=== PATIENT | male | born 1960 | race Caucasian/White ===

== ENCOUNTER → 2019-12-06 | Day surgery (SDC) | payer MEDICARE ==
[~2019-12-06] MED LIST: AMLODIPINE BESY10 MG PO; ATORVASTATIN CA20 MG PO; BUPIVACAINE HCL 0.5% INJ 30 ML VIAL INJ ONE; CEFAZOLIN SOD 1 GM/NS 50ML 50 ML IV ONE; DEXAMETHASONE SOD PHOS INJ 4 MG/ML VIAL ONE; FISH OIL 1,0001 EAC2 PO; GLIPIZIDE5 MG PO; HYDRALAZINE HCL25 MG PO; ISONIAZID300 MG PO; LIDOCAINE HCL 2% LOCAL INJ 5 ML SDV VIAL INJ ONE; ONDANSETRON HCL INJ 2MG/ML 2ML 2 MG/ML VIAL ONE; PROPOFOL IV EMULSION 10 MG/ML 20 ML VIAL ONE; SEVOFLURANE INHAL SOLN 250 ML PEN BTL ONE; SODIUM CHLORIDE 0.9% 500ML 500 ML ONE; VITAMIN B6 PO
--- OUTSIDE RECORDS SUMMARY | 2019-12-06 06:21 | XMS REPORT | Continuity of Care Document ---
Author Author [facility] Address Unknown Phone Unavailable Care Team Providers Care Airport Operations Coordinator Name Role Phone Unavailable Unavailable Insurance Providers Payer Name Policy Number Subscriber Name Relationship [facility] [id number] MARCUS ARMENTA SELF/SAME PATIENT Advance Directives Directive Response Recorded Date/Time Code Status FULL CODE 03/05/19 2:05pm Advance Directive? N 03/05/19 12:05pm Living Will? N 03/05/19 12:05pm Health Care Proxy? N 03/05/19 12:05pm Healthcare Power of Pitch Filler? N 03/05/19 12:05pm Is the patient an Organ Donor? N 03/05/19 11:25am Chief Complaint and Reason for Visit Reason for Visit RENAL FAILURE Problems Active Medical Problems Problem Onset Date Recorded Date Status Renal failure Unknown 03/05/19 Active Medications Current Home Medications Medication Dose Units Route Directions Days/Qty Instructions Start Date AMLODIPINE BESYLATE (AMLODIPINE BESYLATE 10 MG TAB) 10 MG TAB 10 MG By Mouth EVERY DAY @ 0900 Ascorbic Acid (ASCORBIC ACID 500 MG TAB) 500 MG TAB 500 MG By Mouth EVERY DAY @ 0900 Atorvastatin Calcium (LIPITOR 20 MG TAB) 20 MG TAB 20 MG By Mouth AT BEDTIME (2100) B-Complex Vitamins (VITAMIN B COMPLEX TAB) 1 TAB TAB 1 TAB By Mouth EVERY DAY @ 0900 Clonidine Hydrochloride (CLONIDINE 0.1 MG TAB) 0.1 MG TAB 0.1 MG By Mouth TWICE A DAY (0900; 2100) Glipizide (Glipizide ER 2.5 MG TAB) 2.5 MG TAB 2.5 MG By Mouth EVERY DAY @ 0900 Hydralazine Hcl (HYDRALAZINE 100 MG TAB) 100 MG TAB 100 MG By Mouth TWICE A DAY (0900; 2100) 60 03/09/19 Multiple Vitamin (Multi Vitamin) TAB 1 By Mouth EVERY DAY @ 0900 [place]-3 Fatty Acids (FISH OIL 1000 MG CAP) 1,000 MG CAP 1,000 MG By Mouth EVERY DAY @ 0900 Social History Problem Response Recorded Date Druze/Cultural Preferences: NONE 03/05/19 Recreational drugs? N 03/05/19 Alcohol? Y 03/05/19 Query Response Start Date Stop Date Smoking Status: Former Smoker Hospital Discharge Instructions Diagnosis: ESRD Goal: MET Intervention: DIALYSIS Anticipated Discharge Date 03/09/19 Anticipated Discharge Time 1600 Plan of Care Discharge Date 03/09/19 Disposition HOME/SELF CARE Instructions/Education Provided Kidney Failure DI for Kidney Failure Forms Provided [facility] Phone Sd Patient Portal [employer] Instruct DI How to Quit Smoking Prescriptions See Medications Section Additional Instructions/Education F/U W/ PCP IN 1WK Care Plan and Goals See Discharge Instructions section Functional Status Query Response Date Recorded WNL?+ Y March 09, 2019 9:00am Allergies, Adverse Reactions, Alerts No known allergies. Immunizations No Known History of Immunizations. Vital Signs Vital Reading Collection Date/Time Result Blood Pressure 03/09/19 3:08pm 157/82 Blood Pressure Source 03/09/19 4:00am Auto Cuff Temperature 03/09/19 3:08pm 97.2 F Temperature Source 03/09/19 4:00am Oral Respiratory Rate 03/09/19 3:08pm 18 Pulse Rate 03/09/19 3:08pm 74 Pulse Location 03/09/19 4:00am Monitor Bedside Pulse Oximetry 03/09/19 3:08pm 97 Height 03/09/19 6:00am 5 ft 11 in Height 03/09/19 6:00am 180.34 cm Weight 03/09/19 6:00am 210 lb Weight 03/09/19 6:00am 95.424 kg Body Mass Index 03/09/19 6:00am 29.3 kg/m2 Results Laboratory Results Test Name Result Units Flags Reference Collection Date/Time Result Date/Time Comments Glucose (Fingerstick) 142 mg/dL H 65-99 03/09/19 11:56am 03/09/19 2:25pm Sodium Level 137 mmol/L 135-144 03/09/19 5:11a03/09/19 5:46am Potassium Level 3.9 mmol/L 3.5-5.1 03/09/19 5:11a03/09/19 5:46am Chloride Level 101 mmol/L 101-111 03/09/19 5:11a03/09/19 5:46am Carbon Dioxide Level 25 mmol/L 22-32 03/09/19 5:11a03/09/19 5:46am Anion Gap 14.9 mmol/L 10-03/09/19 5:11a03/09/19 5:46am Glucose Level 127 mg/dL H 65-99 03/09/19 5:11a03/09/19 5:46am Prediabetes 100 to 125 mg/dl Diabetes 126 mg/dl or higher Prediabetes refers to individuals with plasma glucose levels intermediate between those considered normal and those considered diabetic and is also referred to as impaired glucose tolerance (IGT) or impaired fasting glucose (IFG). Blood Urea Nitrogen 22 mg/dL 8-03/09/19 5:11a03/09/19 5:46am Creatinine 4.4 mg/dL H 0.61-1.24 03/09/19 5:11a03/09/19 5:46am EGFR Note 13.3 L 59.3-175.8 03/09/19 5:11a03/09/19 5:46am eGFR (Estimated Glomerular Filtration Rate) eGFR calculation value obtained using the [facility] Quadratic (MCQ) equation. The reportable reference range is recommended to be greater than 60 ml/min/1.73m. This is an estimation of the patient's GFR and clinical correlation is recommended. This eGFR calculation does not account for race. This result may differ from other equations available. Calcium Level 8.4 mg/dL L 8.9-10.3 03/09/19 5:11am 03/09/19 5:46am Urine Color STRAW YELLOW 03/07/19 7:45am 03/07/19 8:31am Urine Appearance CLEAR CLEAR 03/07/19 7:45am 03/07/19 8:31am Urine Glucose 100 mg/dL A NEGATIVE 03/07/19 7:45am 03/07/19 8:31am Urine Bilirubin NEGATIVE NEGATIVE 03/07/19 7:45am 03/07/19 8:31am Urine Ketones NEGATIVE NEGATIVE 03/07/19 7:45am 03/07/19 8:31am Urine Specific [place] 1.020 1.002-1.030 03/07/19 7:45am 03/07/19 8:31am Urine Blood SMALL A NEGATIVE 03/07/19 7:45am 03/07/19 8:31am Urine pH 6.5 4.5-8.0 03/07/19 7:45am 03/07/19 8:31am Urine Protein >=300 mg/dL A NEGATIVE 03/07/19 7:45am 03/07/19 8:31am Urine Urobilinogen 0.2 E.U./dL 0.2 03/07/19 7:45am 03/07/19 8:31am Urine Nitrite NEGATIVE NEGATIVE 03/07/19 7:45am 03/07/19 8:31am Urine Leukocyte Esterase NEGATIVE NEGATIVE 03/07/19 7:45am 03/07/19 8:31am Urine Microscopic Indicated YES NO 03/07/19 7:45am 03/07/19 8:31am Urine RBC 0-2 /hpf 0-2 03/07/19 7:45am 03/07/19 8:38am Urine WBC 0-2 /hpf 0-2 03/07/19 7:45am 03/07/19 8:38am Urine Epithelial Cells 0-2 /hpf 0-2 03/07/19 7:45am 03/07/19 8:38am Urine Bacteria FEW /hpf NEG 03/07/19 7:45am 03/07/19 8:38am Urine Mucus TRACE /lpf A NEG 03/07/19 7:45am 03/07/19 8:38am Prothrombin Time 12.1 SECONDS 10.0-12.9 03/06/19 4:48am 03/06/19 5:11am INR International Normalized Ratio 1.1 0.91-1.15 03/06/19 4:48am 03/06/19 5:11am THE INR IS TO BE USED ONLY FOR MONITORING ORAL ANTICOAGULANT THERAPY. INDICATION INR VALUE 1. Prophylaxis of venous thrombosis 2.0-3.0 (high-risk surgery) Treatment of venous thrombosis Treatment of PE Prevention of systemic embolism Tissue heart valves AMI (to prevent systemic embolism) Valvular heart disease Atrial fibrillation Bileaflet mechanical valve in aortic position 2. Mechanical prosthetic heart valves (high risk) 2.5-3.5 Thrombosis and Antiphospholipid syndrome Prevention of recurrent ID Sixth ACCP Consensus Conference on Antithrombotic Therapy, Chest 2001; 119:Supplement 8-21. White Blood Count 5.7 K/uL 4.8-10.8 03/06/19 4:45am 03/06/19 5:08am Red Blood Count 2.92 M/uL L 4.70-6.00 03/06/19 4:45am 03/06/19 5:08am Hemoglobin 8.8 g/dL L 13.5-17.5 03/06/19 4:45am 03/06/19 5:08am Hematocrit 25.0 % L 42.0-52.0 03/06/19 4:45am 03/06/19 5:08am Mean Corpuscular Volume 85.8 fl 80.0-100.0 03/06/19 4:45am 03/06/19 5:08am Mean Corpuscular Hemoglobin 30.0 pg 27.0-31.0 03/06/19 4:45am 03/06/19 5:08am Mean Corpuscular Hgb Concent Diff 35.0 g/dL 32.0-36.0 03/06/19 4:45am 03/06/19 5:08am Red Cell Distribution Width 13.8 % 11.5-14.5 03/06/19 4:45am 03/06/19 5:08am Platelet Count 202 K/uL 130-400 03/06/19 4:45am 03/06/19 5:08am Mean Platelet Volume 6.0 fl 03/06/19 4:45am 03/06/19 5:08am Granulocytes (%) 53.4 % 50.0-75.0 03/06/19 4:45am 03/06/19 5:08am Lymphocytes % 36.5 % 20.0-40.0 03/06/19 4:45am 03/06/19 5:08am Monocytes % 6.6 % 0.0-15.0 03/06/19 4:45am 03/06/19 5:08am Eosinophils % 2.4 % 0.0-10.0 03/06/19 4:45am 03/06/19 5:08am Basophils % 1.1 % 0.0-2.0 03/06/19 4:45am 03/06/19 5:08am Granulocytes # 3.1 K/uL 1.8-6.4 03/06/19 4:45am 03/06/19 5:08am Lymphocytes # 2.1 K/uL 1.2-3.6 03/06/19 4:45am 03/06/19 5:08am Monocytes # 0.4 K/uL 0.3-0.9 03/06/19 4:45am 03/06/19 5:08am Eosinophils # 0.1 K/ul 0.0-0.5 03/06/19 4:45am 03/06/19 5:08am Basophils # 0.1 K/uL 0.0-0.2 03/06/19 4:45am 03/06/19 5:08am Manual Differential NO 03/06/19 4:45am 03/06/19 5:08am Hemoglobin A1c Percent 6.40 % H 4.0-5.6 03/06/19 4:45am 03/06/19 5:22am Prediabetes 5.7% to 6.4% Diabetes 6.5% or higher Elevated levels of HbA1c suggest the need for more aggressive treatment of glycemia. The [place] [employer] recommends that a primary goal of therapy should be a HbA1c of <7% and that physicians should reevaluate the treatment regimen in patients with HbA1c values consistently >8%. N/A 137 mg/dL 03/06/19 4:45am 03/06/19 5:22am A1C Result% Estimated Avg.Glucose (EAG) 6.0% 126 mg/dL 6.5% 140 mg/dL 7.0% 154 mg/dL 7.5% 169 mg/dL 8.0% 183 mg/dL 8.5% 197 mg/dL 9.0% 212 mg/dL 9.5% 226 mg/dL 10.0% 240 mg/dL Reference: enid Torres al, Diabetes Care 31: 1437, 2008. Hepatitis C Virus Quantitation [id number] IU/mL . 03/05/19 4:29pm 03/08/19 1:27pm Hepatitis C RNA (PCR) log10 6.358 . 03/05/19 4:29pm 03/08/19 1:27pm INFCE Result Units: log10 IU/mL Hepatitis C Virus Note Comment . 03/05/19 4:29pm 03/08/19 1:27pm The quantitative range of this assay is 15 IU/mL to 100 million IU/mL. Performed at: - [facility] [id number] Waist Presser: Gayla Crook MD, Phone: [phone] Activated Partial Thromboplast Time 35.3 SECONDS 25.1-36.5 03/05/19 12:01pm 03/05/19 12:16pm Albumin 3.2 g/dL L 3.5-5.0 03/05/19 12:01pm 03/05/19 12:19pm Total Bilirubin 0.5 mg/dL 0.2-1.2 03/05/19 12:01pm 03/05/19 12:19pm Alkaline Phosphatase 66 IU/L 32-91 03/05/19 12:01pm 03/05/19 12:19pm Total Protein 6.3 g/dL L 6.5-8.1 03/05/19 12:01pm 03/05/19 12:19pm Alanine Aminotransferase (ALT/SGPT) 31 IU/L 7-55 03/05/19 12:01pm 03/05/19 12:19pm Aspartate Amino Transf (AST/SGOT) 22 IU/L 15-41 03/05/19 12:01pm 03/05/19 12:19pm Globulin 3.1 g/dL 2.3-3.5 03/05/19 12:01pm 03/05/19 12:19pm Albumin/Globulin Ratio 1.0 L 1.2-2.2 03/05/19 12:01pm 03/05/19 12:19pm Hepatitis A IgM Antibody NONREACTIVE NONREACTIVE 03/05/19 12:01pm 03/05/19 4:18pm Hepatitis B Surface Antigen NONREACTIVE NONREACTIVE 03/05/19 12:01pm 03/05/19 4:18pm Hepatitis B Core IgM Antibody NONREACTIVE NONREACTIVE 03/05/19 12:01pm 03/05/19 4:18pm Hepatitis C Antibody REACTIVE A NONREACTIVE 03/05/19 12:01pm 03/05/19 4:18pm A reactive result may indicate current HCV infection, or past HCV infection that has resolved, or biologic false positivity for HCV antibody. Further testing for HCV RNA to identify current infection will be performed. Hepatitis B Core Total Antibody Negative Negative 03/05/19 12:01pm 03/07/19 9:26am Performed at: - [facility] [address] [id number] Waist Presser: David Vicente MD, Phone: [phone] Urine Sodium 58 mmol/L 02/13/19 8:54am 02/13/19 9:48am Published reference range is not available. Urine Chloride 46.0 mmol/L 02/13/19 8:54am 02/13/19 9:48am Published reference range is not available. Urine Creatinine 72.00 mg/dL 02/13/19 8:54am 02/13/19 9:48am Published reference range is not available. Urine Potassium 33.6 mmol/L 02/13/19 8:54am 02/13/19 9:48am Published reference range is not available. Urine Total Protein 757 mg/dL H 0.0-15.0 02/13/19 8:54am 02/13/19 9:48am Procedures Procedure Status Date Provider(s) BASIC METABOLIC PANEL Completed 02/06/19,EDGARDO ROUTINE URINALYSIS Completed 02/06/19,EDGARDO BASIC METABOLIC PANEL Completed 02/13/19A,EDGARDO ROUTINE URINALYSIS Completed 02/13/19A,EDGARDO URINE CHLORIDE Completed 02/13/19,EDGARDO URINE CREATININE Completed 02/13/19,EDGARDO URINE POTASSIUM Completed 02/13/19A,EDGARDO URINE SODIUM Completed 02/13/19,EDGARDO URINE PROTEIN Completed 02/13/19,EDGARDO COMPREHENSIVE METABOLIC PANEL Completed 02/19/19,EDGARDO CBCA W/PLT & AUTO DIFFERENTIAL Completed 03/05/19,IRINAJESH S COMPREHENSIVE METABOLIC PANEL Completed 03/05/19,SUJESH S PROTIME Completed 03/05/19,SUJESH S PTT Completed 03/05/19,IRINAJESH S HEPATITIS PANEL Completed 03/05/19,EDGARDO HEP B CORE Ab,TOT * Completed 03/05/19,EDGARDO HEP B SURFACE ANTIGEN Completed 03/05/19,EDGARDO HCV RT-PCR, QUANT(NON-GRAPH)* Completed 03/05/19A,EDGARDO ROUTINE URINALYSIS Completed 03/06/19,IRINAJESH S BASIC METABOLIC PANEL Completed 03/06/19,SUJESH S CBCA W/PLT & AUTO DIFFERENTIAL Completed 03/06/19,SUJESH S PROTIME Completed 03/06/19,SUJESH S A1C Completed 03/06/19,SUJESH S BASIC METABOLIC PANEL Completed 03/07/19 SALO,SUJESH S BASIC METABOLIC PANEL Completed 03/08/19 OSVALDO PALACIOS MOTOR COACH BUS DRIVER BASIC METABOLIC PANEL Completed 03/09/19 OSVALDO PALACIOS MOTOR COACH BUS DRIVER HEP Bs AB IgG* Active 03/09/19 JEZ LEONG CHEST 2 VIEWS Completed 03/06/19 OSVALDO PALACIOS NP CARDIAC CATH Active 03/06/19 JEZ LEONG Encounters Encounter Location Arrival/Admit Date Discharge/Depart Date Attending Provider Discharged Inpatient [facility] 03/05/19 11:21am 03/09/19 3:17pm JEZ LEONG Registered Referral [facility] 02/19/19 9:36am EDGARDO CUADRA Registered Referral [facility] 02/13/19 8:43am EDGARDO CUADRA Registered Referral [facility] 02/06/19 9:01am EDGARDO CUADRA Encounter Diagnosis Onset Date Renal failure
--- OUTSIDE RECORDS SUMMARY | 2019-12-06 06:21 | XMS REPORT ---
Author Author [facility] Address Unknown Phone Unavailable Care Team Providers Care Hand Cigar Making Supervisor Name Role Phone Unavailable Unavailable Payers Payer Name Policy Type Policy Number Effective Date Expiration Date Problems This patient has no known problems. Allergies, Adverse Reactions, Alerts Allergy Name Allergy Type Status Severity Reaction(s) Onset Date Inactive Date Treating Clinician Comments No Known Allergies DA Active U 2019-08-06 00:00:00 No Known Allergies DA Active U 2014-01-09 00:00:00 Medications This patient has no known medications. Results Test Description Test Time Test Comments Text Results Atomic Results Result Comments - RMVL CV MARILY WO PORT/PUMP 2019-08-08 15:45:00 Patient Name: CHRISTOPHER ARMENTA Unit No: [id number] EXAMS: CPT CODE: [id number] RMVL CV MARILY WO PORT/PUMP 23678 TUNNELLED CATHETER REMOVAL Dated:08/06/2019 Indication: LOCATION: T18 TECHNIQUE: The risks, benefits, and alternatives were discussed and informed consent was obtained. Prior to beginning the procedure, [place] Protocol was used to confirm the patient's identity and planned procedure. Maximum sterile barriers including cap, mask, hand hygiene, sterile gloves, sterile gown, large sterile drape and cutaneous antisepsis were used. PROCEDURE: The tunneled catheter and surroundi ng skin was prepped and draped in normal sterile fashion. The skin was anesthetized using 1% lidocaine. The subcutaneous cuff of the catheter was freed using blunt dissection. The catheter was removed and pressure held over the puncture site until hemostasis was achieved. A bandage was applied. Complications: None. IMPRESSION: Right internal jugular tunnelled catheter removal. at 3957 Reported and signed by: Tiffany Horner M.D. CC: Cuate Tavares; Tiffany Horner MD Dictated Date/Time: 08/08/2019 (1542) Technologist: Car Hughes Time: DAP (Gy m2): Air Kerma (mGy): Trnscrpt: 08/08/2019 (0308) [email or web address] [facility] Ede IR NAME: CHRISTOPHER ARMENTA Interventional Lab PHYS: Tiffany Newby MD [address] [place] [address] : 1960 AGE: 58 SEX: [place], [place] [address] LOC: [place] PHONE #: EXAM DATE: 08/06/2019 STATUS: DEP [facility] FAX #: RAD #: D/C DT PAGE 1 Signed Report BLOOD UREA NITROGEN 2019-08-06 12:37:00 BLOOD UREA NITROGEN (test code=BUN) 48 MG/DL 04-05 [id number] 12:33:00* Test Item Value Reference Range Comments CREATININE (test code=CREAT) 9.68 MG/DL 0.55-1.30 Critical values are excluded from call documentation due tothe patient diagnosis or therapy protocols.Results may be depressed if patient is takingN-Acetylcysteine (NAC) and Metamizole (Dipyrone). PT AND [id number] 12:32:00* Test Item Value Reference Range Comments PT PATIENT (test code=PTP) 11.1 SECONDS 9.4-12.5 INTERNATIONAL NORMAL RATIO (test code=INR) 0.96 INR Unit 0.88-1.13 Therapeutic range for INR is dependent upon the situation.2.0-3.0 Prophylaxis / venous thromboembolism, Treatment of DVT, Acute myocardial infarction stroke prevention, Systemic embolism prevention in fibrillation3.0-4.5 AMI recurrence prevention, Systemic embolism prevention in prosthetic heart 3.0-5.4 AMI mortality reduction THROMBOPLASTIN TIME PARTIAL (test code=PTT) 35.4 SECONDS 24-37.7 THERAPEUTIC RANGE FOR UNFRACTIONATED HEPARIN=50.5-83.6 SEC This test is not recommended to monitor low molecularweight heparin or danaparoid. Order LMWH test COLLECTION THROUGH LINES THAT HAVE BEEN PREVIOUSLY FLUSHEDWITH HEPARIN SHOULD BE AVOIDED DUE TO POSSIBLE HEPARINCONTAMINATION Specimen comments: PRE OP FOR IRComments to Biomaterials Engineer: PT IN DSUIs this a CORWIN E draw? NANTICOAGULANT THERAPY [Y,N]: UNKCBC W/AUTO [id number] 12:22:00* Test Item Value Reference Range Comments WHITE BLOOD CELL (test code=WBC) 5.9 K/mm3 4.1-12.1 RED BLOOD CELL (test code=RBC) 3.16 M/mm3 3.8-5.5 HEMOGLOBIN (test code=HGB) 9.4 G/DL 10.6-15.8 HEMATOCRIT (test code=HCT) 28.2 % 31.8-47.4 MEAN CELL VOLUME (test code=MCV) 89.2 fL 80.1-101.1 MEAN CELL HGB (test code=MCH) 29.7 pg 25.3-35.3 MEAN CELL HGB CONCETRATION (test code=MCHC) 33.3 G/DL 32.7-35.1 RED CELL DISTRIBUTION WIDTH (test code=RDW) 13.6 % 12.2-16.4 RED CELL DISTRIBUTION WIDTH (test code=RDW-SD) 44.1 fL 35.1-43.9 PLATELET COUNT (test code=PLT) 213 K/mm3 155-337 MEAN PLATELET VOLUME (test code=MPV) 8.6 fL 7.6-10.4 GRANULOCYTE % (test code=GR%) 54.8 % 37.8-82.6 IMMATURE GRANULOCYTE % (test code=IG%) 0.7 % 0.0-2.0 LYMPHOCYTE % (test code=LY%) 33.2 % 14.1-45.4 MONOCYTE % (test code=MO%) 7.9 % 2.5-11.7 EOSINOPHIL % (test code=EO%) 2.4 % 0.0-6.2 BASOPHIL % (test code=BA%) 1.0 % 0.0-2.6 NUCLEATED RBC % (test code=NRBC%) 0.0 /100WBC% 0.0-1.0 GRANULOCYTE # (test code=GR#) 3.25 k/mm3 2.0-13.7 IMMATURE GRANULOCYTE # (test code=IG#) 0.04 K/mm3 0.00-0.03 LYMPHOCYTE # (test code=LY#) 1.97 K/mm3 0.6-3.8 MONOCYTE # (test code=MO#) 0.47 K/mm3 0.11-0.59 EOSINOPHIL # (test code=EO#) 0.14 K/mm3 0.0-0.4 BASOPHIL # (test code=BA#) 0.06 K/mm3 0.0-0.1 NUCLEATED RBC # (test code=NRBC#) 0.00 K/mm3 0.00-0.05
--- NOTE | 2019-12-06 07:15 | NUR ---
SPIRITUAL CARE - Pre-Surgery Assessment: Pt in bed. Pt reported supportive attention from family and friends. Intervention: I provided pastoral presence, hospitality, and sympathetic listening. I acquainted pt with availability of sap bpc developer while hospitalized. Outcome: Pt expressed appreciation for visit. No need for follow up indicated at this time. [facility] Spiritual Care Department O: [phone]
[2019-12-06 07:18] LABS: BASOPHILS # (AUTO) 0.1 (0.0-0.1); BASOPHILS % 1.2 % (0.0-1.0); EOSINOPHILS # (AUTO) 0.1 (0.0-0.4); EOSINOPHILS % 1.2 % (0.0-6.0); HEMATOCRIT 34.5 % (38.2-49.6); HEMOGLOBIN 11.6 g/dL (14.0-18.0); LYMPHOCYTES % 32.9 % (18.0-39.1); MEAN CORPUSCULAR HEMOGLOBIN 30.8 pg (28-32); MEAN CORPUSCULAR HGB CONC 33.6 g/dL (31-35); MEAN CORPUSCULAR VOLUME 91.5 fL (81-99); MONOCYTES # (AUTO) 0.5 (0.2-0.8); MONOCYTES % 8.6 % (4.4-11.3); NEUTROPHILS # (AUTO) 3.3 (2.1-6.9); NEUTROPHILS % 55.8 % (38.7-80.0); PLATELET COUNT 202 x10e3/uL (140-360); RED BLOOD COUNT 3.77 x10e6/uL (4.3-5.7); RED CELL DISTRIBUTION WIDTH 13.1 % (11.7-14.4)
[2019-12-06 07:33] LABS: INR 0.91; PROTHROMBIN TIME 12.8 seconds (11.9-14.5)
[2019-12-06 07:34] LABS: PARTIAL THROMBOPLASTIN TIME 29.4 seconds (23.8-35.5)
[2019-12-06 08:11] LABS: ANION GAP 16.3 mmol/L (8-16); CALCIUM 9.9 mg/dL (8.4-10.2); CREATININE, SERUM 4.78 mg/dL (0.72-1.25); POTASSIUM 4.3 mmol/L (3.5-5.1)
[2019-12-06 10:15] VITALS: BP 157/88
--- NOTE | 2019-12-06 14:55 | Operative Report ---
DATE OF PROCEDURE: 12/06/2019 SURGEON: Osvaldo Betancourt MD PREOPERATIVE DIAGNOSIS: Left carpal tunnel syndrome. POSTOPERATIVE DIAGNOSIS: Left carpal tunnel syndrome. PROCEDURE: Left carpal tunnel release. ANESTHESIA: General. INDICATIONS: The patient is a 59-year-old man, who presents with left carpal tunnel syndrome and was taken to surgery for left carpal tunnel release. PROCEDURE IN DETAIL: After induction of general anesthesia, the patient was placed on the operating table in supine position. The left arm was abducted over a hand table. The left hand, wrist, and forearm were prepped and draped circumferentially in sterile fashion. A small midline incision was created over the median and palmar crease of the hand just distal to the distal flexor crease of the wrist. The subcutaneous fat was divided. Transverse carpal ligament was identified and incised with a #15 C blade, and the underlying median nerve came into view. As the library media assistant retracted the skin edges, the transverse carpal ligament was divided proximally and distally until the full length of ligament had been divided and the full length of median nerve within the carpal tunnel was exposed and decompressed. Meticulous hemostasis was secured. The recurrent motor branch of the nerve was protected within its fat pad more distally. The point of maximal compression of the nerve appeared to have been at 2 cm distal to the distal flexor crease of the wrist, but the ligament was at its thickest. The subcutaneous layer was closed with a 3-0 Vicryl suture. The skin was closed with 3-0 nylon sutures in horizontal mattress fashion. A dressing was applied. The patient was awakened, extubated, and taken to postanesthesia care unit in stable condition. No intraoperative complications were encountered. Estimated blood loss was minimal. Osvaldo Betancourt MD PP/MODL /[id number]
== END | disposition home or self-care (01) ==
LOC: OR 06:19
PROVIDERS: ATTEND Neurological Surgery
DX: G56.02 Carpal tunnel syndrome, left upper limb (principal); E78.5 Hyperlipidemia, unspecified; E11.22 Type 2 diabetes mellitus with diabetic chronic kidney disease; B18.2 Chronic viral hepatitis C; I12.0 Hypertensive chronic kidney disease with stage 5 chronic kidney disease or end stage renal disease; N18.6 End stage renal disease; Z99.2 Dependence on renal dialysis; Z79.84 Long term (current) use of oral hypoglycemic drugs; Z68.30 Body mass index [BMI] 30.0-30.9, adult; Z20.1 Contact with and (suspected) exposure to tuberculosis
CPT/HCPCS: 36415; 64721; 80048; 82948; 85025; 85610; 85730; 93005; J0690; J1100; J2001; J2405; J2704; J7040

== ENCOUNTER → 2020-02-07 | Day surgery (SDC) | payer MEDICARE, OTHER ==
[~2020-02-07] MED LIST changes: +CEFAZOLIN SOD 1 GM/NS 50ML 100 ML IV ONE; -CEFAZOLIN SOD 1 GM/NS 50ML 50 ML IV ONE; +FENTANYL CITRATE/PF 100MCG/2 ML INJ ONE; +MIDAZOLAM HCL 2 MG/2 ML VIAL ONE
[2020-02-07 07:27] LABS: ANION GAP 18.4 mmol/L (8-16); CALCIUM 10.1 mg/dL (8.4-10.2); CREATININE, SERUM 6.1 mg/dL (0.72-1.25); POTASSIUM 4.4 mmol/L (3.5-5.1)
[2020-02-07 09:19] VITALS: BP 187/95
[2020-02-07 09:33] LABS: INR 0.87; PROTHROMBIN TIME 12.3 seconds (11.9-14.5)
[2020-02-07 09:34] LABS: PARTIAL THROMBOPLASTIN TIME 29.9 seconds (23.8-35.5)
--- OUTSIDE RECORDS SUMMARY | 2020-02-07 10:33 | XMS REPORT | Clinical Summary ---
Author Author [facility] Organization [place] [facility] Address Unknown Phone Unavailable Care Team Providers Care Operations Intelligence Superintendent Name Role Phone Cuate Tavares MD PCP Allergies No Known Allergies Medications End Date Status Medication Sig Dispensed Refills Start Date Active glipiZIDE (GLUCOTROL) 2.5 Take 2.5 mg 0 MG 24 hr tablet by mouth daily. Active atorvastatin (LIPITOR) 20 Take 20 mg by 0 MG tablet mouth daily. Default OP ins Active amLODIPine (NORVASC) 10 Take 10 mg by 0 mg tablet mouth daily. Active hydrALAZINE (APRESOLINE) Take 100 mg 0 100 MG tablet by mouth 2 (two) times a day. Active omega-3 fatty acids-fish Take 2 g by 0 oil (FISH OIL) 300-1,000 mouth daily. mg capsule 04/25/2020 Active isoniazid (NYDRAZID) 300 Take 1 tablet 30 tablet 8 MG tablet (300 mg 9 total) by mouth daily for 270 days. 04/25/2020 Active pyridoxine, vitamin B6, Take 1 tablet 30 tablet 8 (vitamin B-6) 50 MG (50 mg total) 9 tablet by mouth daily for 270 days. 06/13/2019 acetaminophen-codeine Take 1 tablet 20 tablet 0 (TYLENOL WITH CODEINE #3) by mouth 9 300-30 mg per every 4 tabletIndications: acute (four) hours pain as needed for moderate pain for up to 7 days .Acute Pain. 07/12/2019 Discontinued (Error) EPCLUSA 400-100 mg tablet Take 1 tablet 0 06/20 by mouth 9 daily. 09/05/2019 glecaprevir-pibrentasvir Take 3 28 tablet 1 1 (MAVYRET) 100-40 mg tablets by 9 tablet mouth daily for 55 days. 08/27/2019 Discontinued (Reorder) temazepam (RESTORIL) 15 Take 15 mg by 0 mg capsule mouth nightly 9 as needed for sleep. 09/26/2019 temazepam (RESTORIL) 15 TAKE ONE (1) 30 capsule 0 1 mg capsule TABLET BY 9 MOUTH EVERY NIGHT AT BEDTIME Active Problems Patient Care Coordination Note 05/23/2019 - Kidney txp evaluation consult with Dr. Kingsley. DM evaluation. Check Hep C serologies and AFP due to history of Hep C (treated). Will need serum oxalate and uric acid. Urine calcium/oxalate/creatinine. [place]/lambda ratio. Patient reports depression symptoms - referral to psych. 05/28/2019 - HCV PCR is detected. Patient will need referral to hepatology. 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 Patient to sergey yanglow up with his PCP and firestopper installer for possible adjustment of his outpatient regimen. Pre-transplant evaluation for kidney transplant 12/2018 ESRD (end stage renal disease) 05/23/2019 Last Assessment & Plan: Patient is in need of permanent access. They currently dialyze via a right internal jugular tunneled dialysis cath eter. I discussed with them kidney transplant, peritoneal dialysis as well as hemodialysis. I discussed with them the differences between catheters, fistulas and grafts. We discussed the patient's dialysis needs and the ne ed for having multiple options going forward to reduce the need for extended hemodialysis catheter time. After review of the patient's options we agre ed that the best option for the patient will be a left arm fistula. De cision for surgery made. OR for left arm fistula creation. Consent sig danielle in clinic. Hepatitis C virus infection without hepatic coma 12/2018 Nephrolithiasis 05/23/2019 Chronic midline low back pain without sciatica 05/23 Depressed mood 05/23/2019 Type 2 diabetes mellitus with diabetic nephropathy, w ithout long-term 03/15/2019 current use of insulin Last Assessment & Plan: Continue current regimen. Encounters Care Team Description Date Type Specialty Arik Garcia Kidney Follow-up (TXP - HUMANA MCR PPO - RENAL TXP LISTING AUTH PENDING) 02/06/2020 Documentation Transplant Ferozyonatannatali TatianaMARIA R 02/06/2020 Documentation Transplant Kathy Cervantes Kidney Eval (MRB Packet) 02/05/2020 Documentation Transplant Juvencio Javier MD LTBI (latent tuberculosis infection) 01/11/2020 Orders Only Infectious Diseases Juvencio Javier MD LTBI (latent tuberculosis infection) 12/14/2019 Orders Only Infectious Diseases Arturo Ramachandran MD Chronic hepatitis C without hepatic coma (HCC) (Primary Dx); ESRD (end stage renal disease) ([facility]); Pre-transplant evaluation for kidney transplant; Alcohol use disorder, mild, in sustained remission 12/11/2019 Office Visit Transplant 12/11/2019 Travel 11/28/2019 Travel Juvencio Javier MD LTBI (latent tuberculosis infection) 11/16/2019 Orders Only Infectious Diseases Carmenza Ramos RN Latent tuberculosis by blood test (Prima ry Dx) 11/07/2019 Clinical Infectious Diseases Support Juvencio Javier MD LTBI (latent tuberculosis infection) 10/19/2019 Orders Only Infectious Diseases Juvencio Javier MD LTBI (latent tuberculosis infection) 09/21/2019 Orders Only Infectious Diseases Bee Allan LMSW 09/10/2019 Documentation Transplant Arturo Ramachandran MD Med Refill 08/27/2019 Refill Transplant Bee Allan LMSW 08/06/2019 Documentation Transplant Della Schilling MD ESRD (end stage renal disease) ([facility]) 07/30/2019 Hospital Radiology Encounter Della Schilling MD ESRD (end stage renal disease) ([facility]) (Pr imary Dx) 07/30/2019 Lab Lab Della Schilling MD ESRD (end stage renal disease) ([facility]) 07/30/2019 Lab Lab Della Schilling MD ESRD (end stage renal disease) ([facility]) 07/30/2019 Lab Lab Juvencio Javier MD LTBI (latent tuberculosis infection) (Pr imary Dx) 07/30/2019 Office Visit Infectious Diseases Della Schilling MD ESRD (end stage renal disease) (HCC) 07/30/2019 Lab Transplant Carmenza Ramos, OLMAN 07/30/2019 Orders Only Infectious Diseases Raine Mccarthy, GOLF CART REPAIRER 07/23/2019 Documentation Transplant Neisha Mccarthyn, GOLF CART REPAIRER 07/18/2019 Orders Only Transplant Cervantes, Kathy Kidney Eval (Kidney Eval Appts) 07/16/2019 Documentation Transplant Raine Mccarthy, GOLF CART REPAIRER 07/12/2019 Orders Only Transplant Raine Mccarthy, GOLF CART REPAIRER Chronic hepatitis C without hepatic coma (HCC) (Primary Dx); ESRD on dialysis (HCC) 07/12/2019 Orders Only Transplant Raine Mccarthy, GOLF CART REPAIRER 07/11/2019 Documentation Transplant Raine Mccarthy, GOLF CART REPAIRER 07/10/2019 Orders Only Transplant Raine Mccarthy, GOLF CART REPAIRER 07/09/2019 Orders Only Transplant Bee Allan, MEDICAL AND HEALTH SERVICES MANAGER 07/03/2019 Documentation Transplant Cervantes, Kathy Kidney Eval (Kidney Eval Appts) 07/02/2019 Documentation Transplant Raúl Aponte MD ESRD (end stage renal disease) (HCC) (Pr imary Dx) 06/27/2019 Office Visit Cardiovascular Arturo Ramachandran MD Chronic hepatitis C without hepatic coma (HCC) (Primary Dx); ESRD (end stage renal disease) (HCC); Pre-transplant evaluation for kidney transplant; Alcohol use disorder, moderate, in sustained remission (HCC) 06/26/2019 Office Visit Transplant Arturo Ramachandran MD Chronic hepatitis C without hepatic coma (HCC); ESRD on dialysis (HCC) 06/26/2019 Hospital Radiology Encounter Arturo Ramachandran MD Chronic hepatitis C without hepatic coma (HCC); ESRD on dialysis (HCC) 06/26/2019 Hospital Radiology Encounter Raine Mccarthy LVN Chronic hepatitis C without hepatic coma (HCC) (Primary Dx) 06/25/2019 Orders Only Transplant Raine Mccarthy LVN Chronic hepatitis C without hepatic coma (HCC) (Primary Dx) 06/25/2019 Orders Only Transplant Natalie Man MD ESRD (end stage renal disease) (HCC) 06/20/2019 Hospital Radiology Encounter Natalie Man MD ESRD (end stage renal disease) (HCC) 06/20/2019 Hospital Radiology Encounter Natalie Man MD ESRD (end stage renal disease) (HCC) 06/20/2019 Hospital Procedural Cardiolo gy Encounter Natalie Man MD 06/20/2019 Social Work Transplant Venessa Connelly MA Order Questions 06/20/2019 Telephone Transplant Jero Andino MD D'Empaire, Inna, MD 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 ( HCC) (Primary Dx); Primary insomnia; Adjustment disorder with depressed mood; Chewing tobacco nicotine dependence in remission; Chronic pain syndrome; Vocal tic disorder 06/13/2019 Office Visit Transplant Cecily Crow RN 06/07/2019 Telephone Anesthesiology Raúl Aponte MD Left radiocephalic AV fistula creation 06/06/2019 Surgery General Surgery Michael Wetzel MD Osborn, Ronald Blake, MD 06/06/2019 Anesthesia General Surgery Event Raúl Aponte MD Preop testing 06/06/2019 Hospital General Surgery Encounter Raúl Aponte MD Preop testing 06/01/2019 Hospital Radiology Encounter Raúl Aponte MD Preop testing 06/01/2019 Pre-Admit Pre-Admission Testi ng Testing Appointment Raúl Aponte MD ESRD (end stage renal disease) (HCC) (Pr imary Dx); Type 2 diabetes mellitus with diabetic nephropathy, without long-term current use of insulin (HCC); Essential hypertension 05/30/2019 Office Visit Cardiovascular Claudine Ballard MA Preop testing (Primary Dx) 05/30/2019 Prep for Cardiovascular Surgery Cristina Pablo RN ESRD (end stage renal disease) (HCC) (Pr imary Dx) 05/28/2019 Orders Only Transplant Madeleine Holm Scheduling (emailed itinerary for 9) 05/28/2019 Telephone Transplant Raine Mccarthy LVN Chronic hepatitis C without hepatic coma (HCC) (Primary Dx); ESRD on dialysis (HCC) 05/28/2019 Orders Only Transplant Ministerio Hobbs RN ESRD (end stage renal disease) (HCC) (Pr imary Dx) 05/28/2019 Orders Only Transplant Cristina Pablo RN ESRD (end stage renal disease) (HCC) (Pr imary Dx) 05/25/2019 Orders Only Transplant Francisca Fernandez Kidney Eval (Consent Forms ) 05/24/2019 Documentation Transplant Kathy Cervantes Kidney Eval (Psych Consult) 05/24/2019 Documentation Transplant Natalie Man MD ESRD (end stage renal disease) ([facility]) (Pr imary Dx) 05/23/2019 Office Visit Transplant Natalie Man MD Hebert, Sean Andrew, MD ESRD (end stage renal disease) ([facility]) (Pr imary Dx); Pre-transplant evaluation for kidney transplant; Type 2 diabetes mellitus with diabetic nephropathy, without long-term current use of insulin (HCC); Hepatitis C virus infection without hepatic coma, unspecified chronicity; Nephrolithiasis; Chronic midline low back pain without sciatica; Depressed mood 05/23/2019 Office Visit Transplant Kathy Cervantes Kidney Eval (Psych Consult) 05/23/2019 Documentation Transplant NickolasTalisha Pre-kidney full eval day 1 05/23/2019 Telephone Transplant Jose Arik Kidney Eval (TXP - HU[facility]NA MCR ) 05/18/2019 Documentation Transplant Bettie Nassar MA Referral - Kidney Txp (Re-Referral ) 04/16/2019 Telephone Transplant Marily Yo RN Referral - Kidney Txp 03/15/2019 Telephone Transplant after 02/06/2019 Family History Medical History Relation Name Comments Heart disease Father Cancer Mother Leukemia Mother Relation Name Status Comments Father Alive Mother Social History Date Tobacco Use Types Packs/Day Years Used Quit: 1993 Former Smoker Cigarettes 0.75 13 Smokeless Tobacco: Former Chew Quit: 2018 User Tobacco Cessation: Ready to Quit: Yes; C ounseling Given: Yes Drinks/Week oz/Week Comments Alcohol Use Never Alcohol Habits Answer Date Recorded How often do you have a drink containing alcohol? Never 05/30/2019 How many drinks containing alcohol do you have on No t asked a typical day when you are drinking? How often do you have six or more drinks on one Not asked occasion? 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 Last Filed Vital Signs Reading Time Taken Comments Vital Sign 156/83 12/11/2019 9:07 AM CDT Patient stated t hat he hasn't taken his bp medication yet. Blood Pressure 80 12/11/2019 9:07 AM CDT Pulse 36.4 C (97.5 F) 12/11/2019 9:07 AM CDT Temperature 18 12/11/2019 9:07 AM CDT Respiratory Rate 98% 12/11/2019 9:07 AM CDT Oxygen Saturation - - Inhaled Oxygen Concentration 101 kg (223 lb 9.6 oz) 12/11/2019 9:07 AM CDT Weight 180.3 cm (5' 11") 12/11/2019 9:07 AM CDT Height 31.19 12/11/2019 9:07 AM CDT Body Mass Index Plan of Treatment Health Maintenance Due Date Last Done Comments DIABETIC RETINAL EYE EXAM 1959 DIABETIC FOOT EXAM 1969 URINE MICROALBUMIN 1969 COLONOSCOPY SCREENING 2009 SHINGLES VACCINES (#1) 2009 INFLUENZA VACCINE 04/19/2020 Implants Device Identifier Shelf Expiration Date Model / Serial / L ot Implanted Type Area Manufactur er 01/17/2024 [id number] / / [id number] Manufacturing Helper Mltpl Clip Ligaclip Ligtng Surgical N/A: N/A ETHICON 20 Clips 23.8cm Sm Ti - [id number] Implants; END O Implanted: 06/06/2019 at T [employer]; [facility] (Quantity not on file) Extenders; Surgical Wires Procedures Comments Procedure Name Priority Date/Time Associated Diag nosis ESTIMATED GFR Routine 11/28/2019 9:05 AM CDT HEPATITIS C VIRUS Routine 11/28/2019 Chronic hepa titis C QUANTITATIVE BY PCR 9:05 AM CDT without hepatic c julia (HCC) ESRD on dialysis (HCC) PROTHROMBIN TIME WITH INR Routine 11/28/2019 Dental Ceramist Assistant mirtha hepatitis C 9:05 AM CDT without hepatic coma (HCC) ESRD on dialysis (HCC) COMPREHENSIVE METABOLIC Routine 11/28/2019 Chroni c hepatitis C PANEL 9:05 AM CDT without hepatic com a (HCC) ESRD on dialysis (HCC) HC COMPLETE BLD COUNT Routine 11/28/2019 Chronic hepatitis C W/AUTO DIFF 9:05 AM CDT without hepatic com a (HCC) ESRD on dialysis (HCC) ESTIMATED GFR Routine 09/05/2019 9:15 AM MACHINE SIGN WRITER HEPATITIS C VIRUS Routine 09/05/2019 Chronic hepa titis C QUANTITATIVE BY PCR 9:15 AM MACHINE SIGN WRITER without hepatic c julia (HCC) ESRD on dialysis (HCC) PROTHROMBIN TIME WITH INR Routine 09/05/2019 Dental Ceramist Assistant mirtha hepatitis C 9:15 AM MACHINE SIGN WRITER without hepatic coma (HCC) ESRD on dialysis (HCC) COMPREHENSIVE METABOLIC Routine 09/05/2019 Chroni c hepatitis C PANEL 9:15 AM MACHINE SIGN WRITER without hepatic com a (HCC) ESRD on dialysis (HCC) HC COMPLETE BLD COUNT Routine 09/05/2019 Chronic hepatitis C W/AUTO DIFF 9:15 AM MACHINE SIGN WRITER without hepatic com a (HCC) ESRD on dialysis (HCC) ESTIMATED GFR Routine 08/08/2019 8:57 AM MACHINE SIGN WRITER HEPATITIS C VIRUS Routine 08/08/2019 Chronic hepa titis C QUANTITATIVE BY PCR 8:57 AM MACHINE SIGN WRITER without hepatic c julia (HCC) ESRD on dialysis (HCC) PROTHROMBIN TIME WITH INR Routine 08/08/2019 Dental Ceramist Assistant mirtha hepatitis C 8:57 AM MACHINE SIGN WRITER without hepatic coma (HCC) ESRD on dialysis (HCC) COMPREHENSIVE METABOLIC Routine 08/08/2019 Chroni c hepatitis C PANEL 8:57 AM MACHINE SIGN WRITER without hepatic com a (HCC) ESRD on dialysis (HCC) HC COMPLETE BLD COUNT Routine 08/08/2019 Chronic hepatitis C W/AUTO DIFF 8:57 AM MACHINE SIGN WRITER without hepatic com a (HCC) ESRD on dialysis (HCC) OXALATE, URINE Routine 07/31/2019 2:30 PM MACHINE SIGN WRITER CT ANGIOGRAM ABDOMEN Routine 07/30/2019 ESRD (end stage renal PELVIS W AND OR WO 11:21 AM MACHINE SIGN WRITER disease) (HCC) CONTRAST MISCELLANEOUS REFERRAL Routine 07/30/2019 TEST 7:14 AM MACHINE SIGN WRITER C1Q CLASS 1 & 2 ANTIBODY Routine 07/30/2019 7:14 AM MACHINE SIGN WRITER HLA AUTOLOGOUS CROSSMATCH Routine 07/30/2019 7:14 AM MACHINE SIGN WRITER SINGLE ANTIGEN BEADS Routine 07/30/2019 7:14 AM MACHINE SIGN WRITER LOW RESOLUTION FULL Routine 07/30/2019 TYPING BY SSO 7:14 AM MACHINE SIGN WRITER ESTIMATED GFR Routine 07/30/2019 7:14 AM MACHINE SIGN WRITER KAPPA LAMBDA FREE LIGHT Routine 07/30/2019 ESRD ( end stage renal CHAIN WITH RATIO 7:14 AM MACHINE SIGN WRITER disease) ([facility]) ALPHA FETOPROTEIN Routine 07/30/2019 ESRD (end st age renal 7:14 AM MACHINE SIGN WRITER disease) ([facility]) CREATININE LEVEL, URINE, Routine 07/30/2019 ESRD (end stage renal RANDOM 7:14 AM MACHINE SIGN WRITER disease) ([facility]) CALCIUM LEVEL, URINE, Routine 07/30/2019 ESRD (en d stage renal RANDOM 7:14 AM MACHINE SIGN WRITER disease) ([facility]) URIC ACID LEVEL Routine 07/30/2019 ESRD (end stag e renal 7:14 AM MACHINE SIGN WRITER disease) ([facility]) ABORH - TRANSPLANT Routine 07/30/2019 ESRD (end s tage renal 7:14 AM MACHINE SIGN WRITER disease) ([facility]) PARATHYROID HORMONE Routine 07/30/2019 ESRD (end stage renal 7:14 AM MACHINE SIGN WRITER disease) ([facility]) HSV TYPE 1/2 COMBINED AB, Routine 07/30/2019 ESRD (end stage renal IGM 7:14 AM MACHINE SIGN WRITER disease) ([facility]) HSV 1 & 2 GLYCOPROTEIN G Routine 07/30/2019 ESRD (end stage renal AB, IGG 7:14 AM MACHINE SIGN WRITER disease) ([facility]) HERPES SIMPLEX VIRUS BY Routine 07/30/2019 ESRD ( end stage renal PCR 7:14 AM MACHINE SIGN WRITER disease) (HCC) TRESSA-MENDEZ VIRUS Routine 07/30/2019 ESRD (end s tage renal ANTIBODY TEST 7:14 AM MACHINE SIGN WRITER disease) (HCC) CYTOMEGALOVIRUS AB, IGM Routine 07/30/2019 ESRD ( end stage renal 7:14 AM MACHINE SIGN WRITER disease) (HCC) CYTOMEGALOVIRUS AB, IGG Routine 07/30/2019 ESRD ( end stage renal 7:14 AM MACHINE SIGN WRITER disease) (HCC) HEMOGLOBIN A1C Routine 07/30/2019 ESRD (end stage renal 7:14 AM MACHINE SIGN WRITER disease) (HCC) LDH Routine 07/30/2019 ESRD (end stage renal 7:14 AM MACHINE SIGN WRITER disease) (HCC) PHOSPHORUS LEVEL Routine 07/30/2019 ESRD (end sta ge renal 7:14 AM MACHINE SIGN WRITER disease) (HCC) CREATININE LEVEL Routine 07/30/2019 ESRD (end sta ge renal 7:14 AM MACHINE SIGN WRITER disease) (HCC) FASTING GLUCOSE LEVEL Routine 07/30/2019 ESRD (en d stage renal 7:14 AM MACHINE SIGN WRITER disease) (HCC) LIPID PANEL Routine 07/30/2019 ESRD (end stage renal 7:14 AM MACHINE SIGN WRITER disease) (HCC) OCCULT BLOOD, STOOL Routine 07/29/2019 ESRD (end stage renal 9:16 AM MACHINE SIGN WRITER disease) (HCC) OCCULT BLOOD, STOOL Routine 07/28/2019 ESRD (end stage renal 10:00 AM MACHINE SIGN WRITER disease) (HCC) OCCULT BLOOD, STOOL Routine 07/27/2019 ESRD (end stage renal 10:00 AM MACHINE SIGN WRITER disease) (HCC) ESTIMATED GFR Routine 07/25/2019 9:25 AM MACHINE SIGN WRITER HEPATITIS C VIRUS Routine 07/25/2019 Chronic hepa titis C QUANTITATIVE BY PCR 9:25 AM MACHINE SIGN WRITER without hepatic c julia (HCC) ESRD on dialysis (HCC) PROTHROMBIN TIME WITH INR Routine 07/25/2019 Dental Ceramist Assistant mirtha hepatitis C 9:25 AM MACHINE SIGN WRITER without hepatic coma (HCC) ESRD on dialysis (HCC) COMPREHENSIVE METABOLIC Routine 07/25/2019 Chroni c hepatitis C PANEL 9:25 AM MACHINE SIGN WRITER without hepatic com a (HCC) ESRD on dialysis (HCC) HC COMPLETE BLD COUNT Routine 07/25/2019 Chronic hepatitis C W/AUTO DIFF 9:25 AM MACHINE SIGN WRITER without hepatic com a (HCC) ESRD on dialysis (HCC) HEPATITIS C GENOTYPE Routine 06/26/2019 Chronic h epatitis C 12:00 PM CDT without hepatic coma (HCC) HEPATITIS C VIRUS Routine 06/26/2019 Chronic hepa titis C QUANTITATIVE BY PCR 12:00 PM CDT without hepatic c julia (HCC) HEPATITIS DELTA ANTIBODY Routine 06/26/2019 Chron ic hepatitis C 12:00 PM CDT without hepatic coma (HCC) HEPATITIS BE AG Routine 06/26/2019 Chronic hepati tis C 12:00 PM CDT without hepatic coma (HCC) HEPATITIS BE AB Routine 06/26/2019 Chronic hepati tis C 12:00 PM CDT without hepatic coma (HCC) HEPATITIS E VIRUS AB, IGG Routine 06/26/2019 Dental Ceramist Assistant mirtha hepatitis C BY SIRI 12:00 PM CDT without hepatic com a (HCC) ALPHA FETOPROTEIN Routine 06/26/2019 Chronic hepa titis C 12:00 PM CDT without hepatic coma (HCC) GGT Routine 06/26/2019 Chronic hepatit is C 12:00 PM CDT without hepatic coma (HCC) US ABDOMINAL WITH LIVER Routine 06/26/2019 Chroni c hepatitis C ELASTOGRAPHY 11:06 AM CDT without hepatic com a (HCC) ESRD on dialysis (HCC) US ABDOMINAL DOPPLER Routine 06/26/2019 Chronic h epatitis C 11:05 AM CDT without hepatic coma (HCC) ESRD on dialysis (HCC) US RENAL Routine 06/20/2019 ESRD (end stage renal 12:33 PM CDT disease) ([facility]) XR CHEST 2 VW Routine 06/20/2019 ESRD (end stage renal 10:40 AM CDT disease) ([facility]) TTE COMPLETE, WO Routine 06/20/2019 ESRD (end sta ge renal CONTRAST, W DOPPLER 9:58 AM CDT disease) ([facility]) ([id number]) ECG 12-LEAD Routine 06/20/2019 ESRD (end stage renal 9:06 AM CDT disease) ([facility]) POC GLUCOSE Routine 06/06/2019 9:35 AM CDT MT AN PERIPHERAL BLOCK Routine 06/06/2019 PROCEDURE FOR PAIN 7:34 AM CDT CREATION, AV FISTULA 06/06/2019 ESRD (end stage renal 7:22 AM CDT disease) ([facility]) Case Notes REQ 0730 START, EST 2 HRS Special Needs REQ 0730 START, EST 2 HRS POC GLUCOSE Routine 06/06/2019 5:54 AM CDT POTASSIUM LEVEL STAT 06/06/2019 5:34 AM CDT XR CHEST 2 VW Routine 06/01/2019 Preop testing 11:00 AM CDT ECG PRE/POST OP Routine 06/01/2019 Preop testing 9:49 AM CDT GRAM STAIN Routine 05/23/2019 1:23 PM CDT URINE CULTURE Routine 05/23/2019 1:23 PM CDT HCV QUALITATIVE BY PCR Routine 05/23/2019 11:22 AM CDT ESTIMATED GFR Routine 05/23/2019 11:22 AM CDT PROSTATE SPECIFIC ANTIGEN Routine 05/23/2019 ESRD (end stage renal 11:22 AM CDT disease) ([facility]) SERUM ELECTROPHORESIS Routine 05/23/2019 ESRD (en d stage renal 11:22 AM CDT disease) (HCC) C-PEPTIDE Routine 05/23/2019 ESRD (end stage renal 11:22 AM CDT disease) (HCC) TB T-SPOT Routine 05/23/2019 ESRD (end stage renal 11:22 AM CDT disease) (HCC) NICOTINE AND COTININE, Routine 05/23/2019 ESRD (e nd stage renal SERUM 11:22 AM CDT disease) (HCC) DRUG MANZANO 9, SER/WILLIAM, SCRN Routine 05/23/2019 ESRD (end stage renal W/RFLX TO CONF 11:22 AM CDT disease) (HCC) ABORH - TRANSPLANT Routine 05/23/2019 ESRD (end s tage renal 11:22 AM CDT disease) (HCC) PARTIAL THROMBOPLASTIN Routine 05/23/2019 ESRD (e nd stage renal TIME (PTT) 11:22 AM CDT disease) (HCC) PROTHROMBIN TIME WITH INR Routine 05/23/2019 ESRD (end stage renal 11:22 AM CDT disease) (HCC) HC COMPLETE BLD COUNT Routine 05/23/2019 ESRD (en d stage renal W/AUTO DIFF 11:22 AM CDT disease) (HCC) SYPHILIS TOTAL ANTIBODY Routine 05/23/2019 ESRD ( end stage renal 11:22 AM CDT disease) (HCC) HEPATITIS C ANTIBODY Routine 05/23/2019 ESRD (end stage renal 11:22 AM CDT disease) (HCC) HEPATITIS B SURFACE AB, Routine 05/23/2019 ESRD ( end stage renal QUANTITATIVE 11:22 AM CDT disease) (HCC) HEPATITIS B SURFACE Routine 05/23/2019 ESRD (end stage renal ANTIGEN 11:22 AM CDT disease) (HCC) HEPATITIS B SURFACE Routine 05/23/2019 ESRD (end stage renal ANTIBODY 11:22 AM CDT disease) (HCC) HEPATITIS B CORE ANTIBODY Routine 05/23/2019 ESRD (end stage renal TOTAL 11:22 AM CDT disease) (HCC) HEPATITIS A ANTIBODY Routine 05/23/2019 ESRD (end stage renal TOTAL 11:22 AM CDT disease) (HCC) HIV AG/AB COMBINATION Routine 05/23/2019 ESRD (en d stage renal 11:22 AM CDT disease) (HCC) URINALYSIS SCREEN AND Routine 05/23/2019 ESRD (en d stage renal MICROSCOPY, WITH REFLEX 11:22 AM CDT disease) (HCC ) TO CULTURE COMPREHENSIVE METABOLIC Routine 05/23/2019 ESRD ( end stage renal PANEL 11:22 AM CDT disease) (HCC) after 02/06/2019 Results * Estimated GFR (11/28/2019 9:05 AM CDT) Only the most recent of 6 results within the time period is included. Estimated GFR 7 (A) mL/min/1.73 m2 [place] Comment: [facility] G1 >=90 Normal or high G2 60-89 Mildly decreased G3a 45-59 Mildly to moderately decreased G3b 30-44 Moderately to severely decreased G4 15-29 Severely decreased G5 <15 Kidney failure The eGFR was calculated using the Chronic Kidney Disease Epidemiology Collaboration (CKD-EPI) equation. Interpretation is based on recommendations of the National Kidney Foundation-Kidney Disease Outcomes Quality Initiative (NKF-KDOQI) published in 2014. Specimen Plasma specimen Performing Organization Address City/State/Zipcode [id number] [id number], [address] [place] [address] PATHOLOGY AND GENOMIC MEDICINE [place] [address] [facility] [address] * Hepatitis C virus quantitative by PCR (11/28/2019 9:05 AM CDT) Only the most recent of 5 results within the time period is included. Pathologist [facility] Hepatitis C Not-Detected Not-Detected IU/mL [facility] quantitative, BAPTISM [facility] Hepatitis C See link below for PDF Lab [facility] quantitative, ReportComment: Case Number: [facility]TISM PCR [id number] HOSPITAL Specimen Blood Performing Organization Address City/State/Zipcode Ph one Number [facility] DEPARTMENT OF [address] [place] [address] PATHOLOGY AND GENOMIC MEDICINE [facility] [address] [place] [address] [facility] * Prothrombin time with INR (11/28/2019 9:05 AM CDT) Only the most recent of 5 results within the time period is included. [facility] Prothrombin 12.7 11.5 - 14.5 sec [facility] INR 1.0 [facility] Comment: [facility] Normalized [facility] Ratio (INR) is a therapeutic HOSPITAL monitoring tool for patients who are stable on oral anticoagulant therapy. An INR of 2.0-3.0 is suggested for deep vein thrombosis/pulmonary embolism. Specimen Blood Performing Organization Address City/[facility] Ph one Number [facility] [place] [address], [address] [place] [address] PATHOLOGY AND GENOMIC MEDICINE [facility] THE [address] [facility] [address] * CBC with platelet and differential (11/28/2019 9:05 AM CDT) Only the most recent of 5 results within the time period is included. [facility] WBC 6.03 4.50 - 11.00 k/uL [facility] RBC 3.79 (L) 4.40 - 6.00 m/uL [facility] HGB 11.4 (L) 14.0 - 18.0 g/dL [facility] HCT 34.5 (L) 41.0 - 51.0 % [facility] MCV 91.0 82.0 - 100.0 fL [facility] MCH 30.1 27.0 - 34.0 pg [facility] MCHC 33.0 31.0 - 37.0 g/dL [facility] RDW - SD 41.8 37.0 - 55.0 fL [facility] MPV 8.4 (L) 8.8 - 13.2 fL [facility] Platelet count 223 150 - 400 k/uL [facility] Nucleated RBC 0.00 /100 WBC [facility] Neutrophils 53.2 39.0 - 69.0 % [facility] Lymphocytes 34.3 25.0 - 45.0 % [facility] Monocytes 8.6 0.0 - 10.0 % [facility] Eosinophils 2.2 0.0 - 5.0 % [facility] Basophils 1.2 (H) 0.0 - 1.0 % [facility] Immature 0.5Comment: "Immature 0.0 - 1.0 % [facility] granulocytes granulocytes" (promyelocytes, [facility] myelocytes, metamyelocytes) [facility] Specimen Blood Performing Organization Address City/State[facility] Ph one Number [facility] [place] [address], [address] [place] [address] PATHOLOGY AND GENOMIC MEDICINE [facility] THE [address] [facility] [address] * Comprehensive metabolic panel (11/28/2019 9:05 AM CDT) Only the most recent of 5 results within the time period is included. Sodium 139 135 - 148 mEq/L [facility] Potassium 4.8 3.5 - 5.0 mEq/L [facility] Chloride 93 (L) 98 - 112 mEq/L [facility] CO2 28 24 - 31 mEq/L [facility] Anion gap 18 (H) 7 - 15 mEq/L [facility] BUN 40 (H) 8 - 23 mg/dL [facility] Creatinine 7.49 (H) 0.70 - 1.20 mg/dL [facility] Glucose 160 (H) 65 - 99 mg/dL [facility] Calcium 9.0 8.8 - 10.2 mg/dL [facility] Protein 8.1 6.3 - 8.3 g/dL [facility] Comment: [facility] 4.6-7.0 g/dL 1 week 4.4-7.6 g/dL 7 months-1year 5.1-7.3 g/dL 1-2 years 5.6-7.5 g/dL >3 years 6.0-8.0 g/dL 18-150 6.3-8.3 g/dL Albumin 4.2 3.5 - 5.0 g/dL [facility] A/G ratio 1.1 0.7 - 3.8 [facility] Alkaline 88 40 - 129 U/L [facility] phosphatase [facility] AST 14 10 - 50 U/L [facility] ALT 6 5 - 50 U/L [facility] Total bilirubin 0.5 0.0 - 1.2 mg/dL [facility] Specimen Plasma specimen Performing Organization Address City/[facility] [place] [address], [address] [place] [address] PATHOLOGY AND GENOMIC MEDICINE [facility] THE [address] [facility] [address] * Oxalate, urine (07/31/2019 2:30 PM MACHINE SIGN WRITER) Collection 24Comment: Corrected result; hr H M [facility] length previously reported as na o n 08/01/2019 at 13:08 by V/AUT Total volume, 1,100Comment: Corrected mL [facility] urine result; previously reported as na on 08/01/2019 at 13:08 by V/AUT Oxalate, urine 16 mg/L [facility] mg/l Oxalate, urine 18 16 - 49 mg/d [facility] mg/day Comment: REFERENCE INTERVAL: Oxalate, Urine - mg/day Access complete set of age- and/or gender-specific reference intervals for this test in the [facility] Test Directory (Livestream). Creatinine, 42 mg/dL [facility] urine mg/dL Creatinine, 462 (L) 800 - 2,100 mg/d [facility] AB urine mg/day Comment: Performed by [facility], [address] [place] [address] [id number] [email or web address], Max Chung MD, Lab. Director Specimen Urine Performing Organization Address City/[facility] Ph one Number [facility] [address] [place] [address] [facility] [address] [place] [address] * CTA Abdomen Pelvis W And Or Wo Contrast (07/30/2019 11:21 AM MACHINE SIGN WRITER) Specimen Narrative Performed At EXAMINATION: CT ANGIOGRAM ABDOMEN PELVIS W AND OR W O CONTRAST RADIANT CLINICAL HISTORY: N18.6 End stage hardy al disease, Renal Transplant Evaluation TECHNIQUE: Multiple CT angiographic kamini ges of the abdomen and pelvis were obtained during intravenous administrat ion of contrast. Multiple computerized reformatted images as well as 3-D volum e rendered images were also obtained. CT imaging was performed with iterative reconstruction techniques and/or automated exposure control to reduce ra diation dose. COMPARISON: None. FINDINGS: The abdominal aorta is of normal course and caliber throughout its length, with nonflow-limiting calcified atheromatous plaque predominant in the infrarenal segment. No dissection, intramural eda magali or ulcer. [employer] Att[employer] aortic diameters: Diaphr agmatic hiatus: 2.5 cm Level of renal arteries: 2.1 cm Distal infrarenal segment: 1.9 cm Celiac: There is a J-shaped proximal se gment stenosis with poststenotic dilation. Stenosis is greater than 75%. Poststenotic dilation measures up to 1 cm. The gastroduodenal and pancreaticod uodenal plexus is enlarged. SMA: Patent without stenosis. Replaced right hepatic artery. KAMINI: Normal Renal arteries: Right: Single. Patent without stenosis. Left: Single. Patent without stenosis. Mild proximal segment calcification. Iliac arteries: Right common: Mildly tortuous. Mild dis geovany segments calcification along the posterolateral wall. Diameter 1.2 cm Left common: Trace proximal segment omi cification along the medial wall. Diameter 1.2 cm Right external: Mildly tortuous. No omi cification or plaque. Diameter 1.2 cm Left external: Mildly tortuous. Mild me dial wall calcification without stenosis. Diameter 1.2 cm The common femoral, image portions of t he superficial femoral and profunda femoris are normal. Moderate diffuse ar teriosclerosis of the internal iliac arteries without aneurysm. Soft tissues: Clear lung bases. Cardiomegaly without pericardial effusion. The liver, gallbladder, pancreas and sp marsha are normal Adrenal glands: Normal Kidneys: 1.1 cm left inferior pole nono bstructive stone. 1 cm low-attenuation nodule at the anterior aspect of the ri ght mid kidney, statistically likely a cyst. Otherwise, normal Ureters and urinary bladder: Normal Prostate and seminal vesicles: Seminal vesicles are prominent. Mild coarse central prostate calcification. Bowel: Normal caliber. Peritoneum: Normal Lymph nodes: Normal Skeleton: Intact. Mild multilevel degen erative disc disease. Soft tissues: Normal IMPRESSION: 1.Aorta and iliac arteries demonstrate mild calcification, but are without stenosis. 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 [id number] Procedure Note Hm Interface, Radiology Results Incoming - 07/30/2019 12:04 PM MACHINE SIGN WRITER EXAMINATION: CT ANGIOGRAM ABDOMEN PELVIS W AND OR WO CONTRAST CLINICAL HISTORY: N18.6 End stage renal disease, Renal Transplant Evaluation TECHNIQUE: Multiple CT angiographic images of the abdomen and pelvis were obtained during intravenous administration of contrast. Multiple computerized reformatted images as well as 3-D volume rendered images were also obtained. CT imaging was performed with iterative reconstruction techniques and/or automated exposure control to reduce radiation dose. COMPARISON: None. FINDINGS: The abdominal aorta is of normal course and caliber throughout its length, with nonflow-limiting calcified atheromatous plaque predominant in the infrarenal segment. No dissection, intramural hematoma or ulcer. [employer] Attendant aortic diameters: Diaphragmatic hiatus: 2.5 cm Level of renal arteries: 2.1 cm Distal infrarenal segment: 1.9 cm Celiac: There is a J-shaped proximal segment stenosis with poststenotic dilation. Stenosis is greater than 75%. Poststenotic dilation measures up to 1 cm. The gastroduodenal and pancreaticoduodenal plexus is enlarged. SMA: Patent without stenosis. Replaced right hepatic artery. KAMINI: Normal Renal arteries: Right: Single. Patent without stenosis. Left: Single. Patent without stenosis. Mild proximal segment calcification. Iliac arteries: Right common: Mildly tortuous. Mild distal segments calcification along the posterolateral wall. Diameter 1.2 cm Left common: Trace proximal segment calcification along the medial wall. Diameter 1.2 cm Right external: Mildly tortuous. No calcification or plaque. Diameter 1.2 cm Left external: Mildly tortuous. Mild medial wall calcification without stenosis. Diameter 1.2 cm The common femoral, image portions of the superficial femoral and profunda femoris are normal. Moderate diffuse arteriosclerosis of the internal iliac arteries without aneurysm. Soft tissues: Clear lung bases. Cardiomegaly without pericardial effusion. The liver, gallbladder, pancreas and spleen are normal Adrenal glands: Normal Kidneys: 1.1 cm left inferior pole nonobstructive stone. 1 cm low-attenuation nodule at the anterior aspect of the right mid kidney, statistically likely a cyst. Otherwise, normal Ureters and urinary bladder: Normal Prostate and seminal vesicles: Seminal vesicles are prominent. Mild coarse central prostate calcification. Bowel: Normal caliber. Peritoneum: Normal Lymph nodes: Normal Skeleton: Intact. Mild multilevel degenerative disc disease. Soft tissues: Normal IMPRESSION: 1.Aorta and iliac arteries demonstrate m ild calcification, but are without stenosis. 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 [id number] Performing Organization Address [facility] [place] [address] * Low resolution full typing by SSO (07/30/2019 7:14 AM MACHINE SIGN WRITER) Interpretation Note: HLA typing was performed [facility] N by PCR-SSO DNA based [facility]ISM procedures. [facility] Note: The serological phenotype is an interpretation based on molecular typing data. [facility] Low resolution See link below for PDF Lab [facility] full typing by Report [facility] Specimen Blood Performing Organization Address [facility] Ph one Number [facility] DEPARTMENT OF [address] [place] [address] PATHOLOGY AND GENOMIC MEDICINE [address] * C1Q class 1 & 2 antibody (07/30/2019 7:14 AM MACHINE SIGN WRITER) Pathologist [facility] Interpretation ADDITIONAL ANTIBODY [facility] INFORMATION: BAPTISM DP4 = DPB1*04:01 [facility] C1Q class 1 & 2 See link below for PDF Lab [facility] antibody Report [facility] Specimen Blood Performing Organization Address [facility] Ph one Number [facility] [place] [address] PATHOLOGY AND GENOMIC MEDICINE [address] * HSV 1 & 2 glycoprotein G Ab, IgG (07/30/2019 7:14 AM MACHINE SIGN WRITER) HSV 1 NegativeComment: Negative: No Negative [facility] glycoprotein G IgG antibodies to HSV1 [facility] Ab, IgG detected. HOSPITAL HSV 2 NegativeComment: Negative: No Negative [facility] glycoprotein G IgG antibodies to HSV2 [facility] Ab, IgG detected. HOSPITAL Specimen Serum Performing Organization Address [facility] Ph one Number [facility] DEPARTMENT OF [address] [place] [address] PATHOLOGY AND GENOMIC MEDICINE [address] * Tressa-Mendez virus antibody test (07/30/2019 7:14 AM MACHINE SIGN WRITER) [facility] EBV Ab to viral Positive (A) Negative [facility] capsid Ag, IgG [facility] EBV Ab to viral Negative Negative [facility] capsid Ag, IgM [facility] EBV Ab to Positive (A) Negative [facility] nuclear Ag, IgG [facility] EBV Ab to early Negative Negative [facility] (D) Ag, IgG [facility] Tressa-Mendez SEE COMMENTComment: Infection [facility] virus antibody Status: Results may suggest [facility]ISM interpretation past EBV infection. HOSPITAL Specimen Serum Performing Organization Address [facility] one Number [facility] DEPARTMENT OF [address] [place] [address] PATHOLOGY AND GENOMIC MEDICINE [address] * Single antigen beads (07/30/2019 7:14 AM MACHINE SIGN WRITER) [facility] SAB serum ID [id number] [facility] SAB serum 07/30/2019 07:14 AM [facility] D&T [facility] SAB class I Negative [facility] SAB cPRA class 0 [facility] SAB class II Negative [facility] antibody [facility] cPRA class 0 [facility] Single antigen See link below for PDF Lab [facility] beads Report [facility] Specimen Blood Performing Organization Address City/[facility] Ph one Number [facility] DEPARTMENT OF [address] [place] [address] PATHOLOGY AND GENOMIC MEDICINE [address] * Miscellaneous referral test (07/30/2019 7:14 AM MACHINE SIGN WRITER) [facility] Misc test name Oxalate, Plasma SHOWN ABOVE Misc test see note SHOWN ABOVE result Comment: Oxalate, Plasma [facility] test code [id number] Oxalate, Plasma 14.0 umol/L high (Ref Interval: <=1.9) 999 INTERPRETIVE INFORMATION: Oxalate, Plasma Test developed and characteristics determined by [facility]. See Compliance Statement B: Livestream/ Test performed by: [facility] [address] [place], [place] [address] Specimen Performing Organization Address [facility] one Number [facility] DEPARTMENT OF [address] [place] [address] PATHOLOGY AND GENOMIC MEDICINE SHOWN ABOVE * [place] lambda free light chain with ratio (07/30/2019 7:14 AM MACHINE SIGN WRITER) [facility] [place] light 187.63 (H) 3.30 - 19.40 mg/L [facility] Lambda light 98.60 (H) 5.70 - 26.30 mg/L [facility] [place] lambda 1.90 (H) 0.26 - 1.65 [facility] Specimen Plasma specimen Performing Organization Address [facility] Ph one Number [facility] [place] [address] PATHOLOGY AND GENOMIC MEDICINE [address] * HSV type 1/2 combined Ab, IgM (07/30/2019 7:14 AM MACHINE SIGN WRITER) [facility] HSV 1/2 0.33 <=0.89 [facility] combined Ab, Comment: IgM INTERPRETIVE INFORMATION: Herpes Simplex Virus Type 1 and/or 2 Antibodies, IgM by SIRI 0.89 IV or Less .......... Not Detected 0.90 - 1.09 IV ........... Indeterminate- Repeat testing in 10-14 days may be helpful. 1.10 IV or Greater ....... Detected-IgM antibody to HSV detected, which may indicate a current or recent infection. However, low levels of IgM antibodies may occasionally persist for more than 12 months post-infection. Performed by [facility], [address] [place] [address] [email or web address], Max Chung MD, Lab. Director Specimen Serum Performing Organization Address City/[facility] Ph one Number [facility] [address] [place] [address] [facility] [address] [place] [address] * HLA autologous crossmatch (07/30/2019 7:14 AM MACHINE SIGN WRITER) Pathologist [facility] AXMHL source Peripheral Blood [facility] AXL current [id number] [facility] serum ID [facility] AXL serum 07/30/2019 07:14 AM [facility] collection D&T [facility] flow XM T Negative [facility] cell result, [facility] flow XM B Negative [facility] cell result, [facility] HLA autologous See link below for PDF Lab [facility] crossmatch Report [facility] Specimen Blood Performing Organization Address City/[facility] Ph one Number [facility] DEPARTMENT OF [address] [place] [address] PATHOLOGY AND GENOMIC MEDICINE [address] * Herpes simplex virus by PCR (07/30/2019 7:14 AM MACHINE SIGN WRITER) [facility] Herpes virus, Not-Detected Not-Detected [facility] PCR [facility] Herpes virus, See link below for PDF Lab [facility] PCR ReportComment: Case Number: [facility]ISM [id number] HOSPITAL Specimen Performing Organization Address City/[facility] Ph one Number [facility] DEPARTMENT OF [address] [place] [address] PATHOLOGY AND GENOMIC MEDICINE [address] * Cytomegalovirus Ab, IgM (07/30/2019 7:14 AM MACHINE SIGN WRITER) Pathologist [facility] Cytomegalovirus Negative Negative [facility] Ab, IgM [facility] Specimen Serum Performing Organization Address City/[facility] Ph one Number [facility] DEPARTMENT OF [address] [place] [address] PATHOLOGY AND GENOMIC MEDICINE [address] * Alpha fetoprotein (07/30/2019 7:14 AM MACHINE SIGN WRITER) Only the most recent of 2 results within the time period is included. Pathologist [facility] Alpha 2.7 0.0 - 8.3 ng/mL [facility] fetoprotein Comment: BAPTISM The Nessa 8000 AFP immunoassay [facility] was used. Results obtained with different assay methods or kits should not be used interchangeably and may be different. Specimen Serum Performing Organization Address City/[facility] one Number [facility] DEPARTMENT OF [address] [place] [address] PATHOLOGY AND GENOMIC MEDICINE [address] * ABORh - transplant (07/30/2019 7:14 AM MACHINE SIGN WRITER) Only the most recent of 2 results within the time period is included. ABO grouping O [facility] Rh type NEG [facility] Specimen Blood Performing Organization Address [facility] one Number [facility] DEPARTMENT OF [address] [place] [address] PATHOLOGY AND GENOMIC MEDICINE [address] * Creatinine level, urine, random (07/30/2019 7:14 AM MACHINE SIGN WRITER) Creatinine, 70 mg/dL [facility] urine, [facility] Specimen Urine Performing Organization Address [facility] one Number [facility] DEPARTMENT OF [address] [place] [address] PATHOLOGY AND GENOMIC MEDICINE [address] * Calcium level, urine, random (07/30/2019 7:14 AM MACHINE SIGN WRITER) Calcium, urine, 3 mg/dL [facility] Specimen Urine Performing Organization Address [facility] one Number [facility] DEPARTMENT OF [address] [place] [address] PATHOLOGY AND GENOMIC MEDICINE [address] * Cytomegalovirus Ab, IgG (07/30/2019 7:14 AM MACHINE SIGN WRITER) Cytomegalovirus Positive (A) Negative [facility] Ab, IgG Comment: B[facility]ISM Positive; IgG antibody to CMV HOSPITAL detected which may indicate exposure to CMV infection. Specimen Serum Performing Organization Address [facility] one Number [facility] DEPARTMENT OF [address] [place] [address] PATHOLOGY AND GENOMIC MEDICINE [address] * Uric acid level (07/30/2019 7:14 AM MACHINE SIGN WRITER) Uric acid 5.1 3.4 - 7.0 mg/dL [facility] Specimen Plasma specimen Performing Organization Address City/State/[facility] Ph one Number [facility] DEPARTMENT OF [address] [place] [address] PATHOLOGY AND GENOMIC MEDICINE [address] * Phosphorus level (07/30/2019 7:14 AM MACHINE SIGN WRITER) Phosphorus 5.9 (H) 2.4 - 4.5 mg/dL [facility] Specimen Plasma specimen Performing Organization Address City/[facility] Ph one Number [facility] DEPARTMENT OF [address] [place] [address] PATHOLOGY AND GENOMIC MEDICINE [address] * Parathyroid hormone (07/30/2019 7:14 AM MACHINE SIGN WRITER) PTH 352 (H) 15 - 65 pg/mL [facility] Specimen Blood Performing Organization Address City/[facility] Ph one Number [facility] DEPARTMENT OF [address] [place] [address] PATHOLOGY AND GENOMIC MEDICINE [address] * LDH (07/30/2019 7:14 AM MACHINE SIGN WRITER) LDH 209 87 - 225 U/L [facility] Specimen Plasma specimen Performing Organization Address City/[facility] Ph one Number [facility] DEPARTMENT OF [address] [place] [address] PATHOLOGY AND GENOMIC MEDICINE [address] * Hemoglobin A1c (07/30/2019 7:14 AM MACHINE SIGN WRITER) Hemoglobin A1C 6.3 (H) 4.0 - 5.6 % [facility] Comment: BAPTISM HbA1c cutoffs for diagnosing HOSPITAL diabetes: 4.0% - 5.6% = normal 5.7% - 6.4% = increased risk for diabetes (prediabetes)9 >=6.5% = diabetes9 Goals for glycemic control (ADA 2016) < 7.0% Target for non adults with diabetes. More or less stringent targets may be appropriate for individual patients. <7.5% Target for Children and adolescents with type 1 diabetes. Specimen Blood Performing Organization Address City/State/[facility] Ph one Number [facility] DEPARTMENT OF [address] [place] [address] PATHOLOGY AND GENOMIC MEDICINE [address] * Fasting glucose level (07/30/2019 7:14 AM MACHINE SIGN WRITER) Glucose, 91 65 - 99 mg/dL [facility] fasting [facility] Specimen Blood Performing Organization Address City/[facility] Ph one Number [facility] DEPARTMENT OF [address] [place] [address] PATHOLOGY AND GENOMIC MEDICINE [address] * Creatinine level (07/30/2019 7:14 AM MACHINE SIGN WRITER) Creatinine 9.19 (H) 0.70 - 1.20 mg/dL [facility] Specimen Plasma specimen Performing Organization Address City/[facility] Ph one Number [facility] DEPARTMENT OF [address] [place] [address] PATHOLOGY AND [facility] MEDICINE [address] * Lipid panel (07/30/2019 7:14 AM MACHINE SIGN WRITER) Pathologist [facility] Cholesterol 121 <200 mg/dL [facility] Triglycerides 58 <150 mg/dL [facility] HDL cholesterol 48 >40 mg/dL [facility] LDL cholesterol 63Comment: Result obtained by <100 mg/dL [facility] direct LDL measurement [facility] Lipid panel See[facility] interpretation Comment: BAPTISM Total Cholesterol (mg/dL) [facility] <200 Desirable 200-239 Borderline-high >=240 High Triglycerides (mg/dL) <150 Normal 150-199 Borderline-high 200-499 High >=500 Very high HDL Cholesterol (mg/dL) <40 Low (male) <40 Low (female) LDL Cholesterol (mg/dL) <100 Optimal 100-129 Near or above optimal 130-159 Borderline-high 160-189 High >=190 Very high Risk Catergories that modify LDL goals. Risk Catergories LDL goal (mg/dL) CHD and CHD risk equivalent <100 (10-year risk >20%) Multiple (2+) risk factors <130 (10-year risk =<20%) 0-1 risk factors <160 (<10-year risk) Defining levels of lipids in metabolic syndrome Triglycerides >=150 mg/dL HDL Cholesterol Men <40 mg/dL Women <40 mg/dL Non-HDL cholesterol is a second target for therapy in persons with high triglycerides (>=200 mg/dL) Specimen Plasma specimen Performing Organization Address [facility] Ph one Number [facility] DEPARTMENT OF [address] [place] [address] PATHOLOGY AND GENOMIC MEDICINE [place] [address] [place] [address] * Occult blood, stool (07/29/2019 9:16 AM MACHINE SIGN WRITER) Only the most recent of 3 results within the time period is included. [facility] Occult blood, Negative for occult blood. [facility] stool Comment: BAPTISM Specimen Information HOSPITAL Specimen Source: Stool Specimen Site: Nonpreserved Specimen Stool - Nonpreserved Performing Organization Address [facility] Ph one Number [facility] DEPARTMENT OF [address] [place] [address] PATHOLOGY AND GENOMIC MEDICINE [place] [address] [place] [address] * Hepatitis E virus Ab, IgG by SIRI (06/26/2019 12:00 PM CDT) [facility] Hepatitis E IgG Negative Negative [facility] Comment: INTERPRETIVE INFORMATION: Hepatitis E Virus Ab, IgG by SIRI Refer to Statement D under Testing Information at [email or web address]. Performed by [facility], [address] [place] [id number] www.[email or web address], Max Chung MD - Lab. Director Specimen Serum Performing Organization Address [facility] one Number [facility] [address] [place] [address] [facility] [address] [place] [address] * Hepatitis Be Ab (06/26/2019 12:00 PM CDT) [facility] Hepatitis Be Ab Negative Negative [facility] Comment: Performed by [facility], [address] [place] [id number] www.[employer], Max Chung MD - Lab. Director Specimen Serum Performing Organization Address [facility] one Number [facility] [address] [place] [address] [facility] [address] [place] [address] * Hepatitis delta antibody (06/26/2019 12:00 PM CDT) [facility] Hepatitis delta Negative Negative [facility] Ab Comment: No antibody to Hepatitis Delta agent was detected. Order anti-HDV testing only when Hepatitis B virus infection has been confirmed. INTERPRETIVE INFORMATION: Hepatitis Delta Ab Test developed and characteristics determined by [facility]. See Compliance Statement D: [employer]/ Performed by [facility], [address] [place] [id number] www.[employer], Max Chung MD, Lab. Director Specimen Serum Performing Organization Address City/[facility] Ph one Number [facility] [address] [place] [address] [facility] [address] [place] [address] * Hepatitis C genotype (06/26/2019 12:00 PM CDT) [facility] Hepatitis C 1a (A) Not Detected [facility] Hepatitis C See link below for PDF Lab [facility] genotype ReportComment: Case Number: [facility]ISM [id number] HOSPITAL Specimen Blood Performing Organization Address [facility] one Number [facility] DEPARTMENT OF [address] [place] [address] PATHOLOGY AND GENOMIC MEDICINE [address] * Hepatitis Be Ag (06/26/2019 12:00 PM CDT) [facility] Hepatitis Be Ag Negative Negative [facility] Comment: Performed by [facility], [address] [place] [id number] www.[employer], Max Chung MD - Lab. Director Specimen Serum Performing Organization Address [facility] one Number [facility] [address] [place] [address] [facility] [address] [place] [address] * GGT (06/26/2019 12:00 PM CDT) [facility] GGT 32 0 - 59 U/L [facility] Specimen Plasma specimen Performing Organization Address [facility] Ph one Number [facility] DEPARTMENT OF [address] [place] [address] PATHOLOGY AND GENOMIC MEDICINE [address] * US Abdominal with Liver Elastograpy (06/26/2019 11:06 AM CDT) Specimen Narrative Performed At EXAM: US ABDOMINAL WITH LIVER ELASTOGRAPHY HM AIDE Ayoub CLINICAL DATA: B18.2 Chronic viral he patitis C, N18.6 End stage renal disease, Hepatitis C COMPARISON: NONE. IMPRESSION: LIVER: The liver demonstrates normal echogenicity without focal mass or intrahepatic biliary ductal dilatation. MPV: Doppler evaluation of the portal vein demonstrates normal hepatopedal flow. GALLBLADDER: Stones and sludge are pr esent in the gallbladder. No evidence of acute cholecystitis. PANCREAS: Visualized pancreas is grossl y unremarkable. CBD: The common bile duct measures 5 mm , within normal limits. ASCITES: No abnormal abdominal fluid co llections are visualized. There is no evidence of ascites. KIDNEYS: The right kidney measures up t o 14 cm in the left kidney measures up to 13.6 cm. The kidneys demonstrate increa sed echogenicity consistent with underlying medical renal disease. There are bilateral renal cysts noted, with the largest in the right kidney measuring up to 11 mm. SPLEEN: Spleen is homogeneous and sli ghtly enlarged measuring up to 14 cm. AORTA: The abdominal aorta is normal in caliber where visualized. IVC: Visualized portions of the IVC are patent. 2D-Shear wave elastography was performe d; 10 measurements were obtained from the right hepatic lobe per protocol. The nm luc shear wave velocity was 1.68 m/s, most compatible with F2 fibrosis (see r eference ranges for GE Logiq E9 with C1-6 Mhz probe below) [employer] E9 reference ranges: MetavirSW velocity stiffness(kPa_ F0 Normal<1.35 m/s<5.48 F1 Mild1.35-1.66 m/s5.48-8.29 F2 Mild-Mod1.66-1.77 m/s8.29-9.4 F3 Mod-Severe1.77-1.99 m/s9.40-11.9 F4 Cirhosis>1.99 m/s>11.9 Reliability: The IQR was 0.11, resulting in an IQR/m edian ratio of 0.07. (A value of < 0.3 indicates a reliable dataset). SUMMARY: 1.F2 fibrosis. No focal liver mass is i dentified. 2.Cholelithiasis without evidence of ch olecystitis. 3.Findings consistent with chronic kidn ey disease. [facility]-[id number] Procedure Note Hm Interface, Radiology Results Incoming - 06/26/2019 11:47 AM CDT EXAM: US ABDOMINAL WITH LIVER ELASTOGRAPHY CLINICAL DATA: B18.2 Chronic viral hepatitis C, N18.6 End stage renal disease, Hepatitis C COMPARISON: NONE. IMPRESSION: LIVER: The liver demonstrates normal echogenicity without focal mass or intrahepatic biliary ductal dilatation. MPV: Doppler evaluation of the portal vein demonstrates normal hepatopedal flow. GALLBLADDER: Stones and sludge are present in the gallbladder. No evidence of acute cholecystitis. PANCREAS: Visualized pancreas is grossly unremarkable. CBD: The common bile duct measures 5 mm , within normal limits. ASCITES: No abnormal abdominal fluid collections are visualized. There is no evidence of ascites. KIDNEYS: The right kidney measures up to 14 cm in the left kidney measures up to 13.6 cm. The kidneys demonstrate increased echogenicity consistent with underlying medical renal disease. There are bilateral renal cysts noted, with the largest in the right kidney measuring up to 11 mm. SPLEEN: Spleen is homogeneous and slightly enlarged measuring up to 14 cm. AORTA: The abdominal aorta is normal in caliber where visualized. IVC: Visualized portions of the IVC are patent. 2D-Shear wave elastography was performed ; 10 measurements were obtained from the right hepatic lobe per protocol. The median shear wave velocity was 1.68 m/s, most compatible with F2 fibrosis (see reference ranges for GE Logiq E9 with C1-6 Mhz probe below) [employer] E9 reference ranges: MetavirSW velocity stiffness(kPa_ F0 Normal<1.35 m/s<5.48 F1 Mild1.35-1.66 m/s5.48-8.29 F2 Mild-Mod1.66-1.77 m/s8.29-9.4 F3 Mod-Severe1.77-1.99 m/s9.40-11.9 F4 Cirhosis>1.99 m/s>11.9 Reliability: The IQR was 0.11, resulting in an IQR/median ratio of 0.07. (A value of < 0.3 indicates a reliable dataset). SUMMARY: 1.F2 fibrosis. No focal liver mass is id entified. 2.Cholelithiasis without evidence of cho lecystitis. 3.Findings consistent with chronic kidne y disease. [facility]-[id number] Performing Organization Address City/State/Zipcode Ph one Number [facility] [address] [place] [address] * US Abdominal Doppler (06/26/2019 11:05 AM CDT) Specimen Narrative Performed At EXAMINATION: [facility] CLINICAL HISTORY: B18.2 Chronic viral hepatitis C, N18.6 End stage renal disease, Hepatitis C COMPARISON: None available TECHNIQUE: Zapien scale, color Doppler an d spectral waveform analysis of the hepatic vasculature. IMPRESSION: 1. PORTAL VEINS: *Main portal vein: The main portal vein is patent with normal directionality of flow. Portal vein velocity is 24.4 cm/s ec. *Left Portal Vein: The left portal vein is patent. *Right Portal Vein:The right portal vei n is patent. 2. HEPATIC VEINS: *Right Hepatic Vein: The right hepatic vein is patent. *Middle Hepatic Vein: The middle hepati c vein is patent. *Left Hepatic Vein: The left hepatic ve in is patent. 3. HEPATIC ARTERIES: *Right Hepatic Artery: The right hepati c artery is patent. *Left Hepatic Artery: The left hepatic artery is patent. 4. IVC: The inferior vena cava is paten t. 5. SMV: The superior mesenteric vein is patent. 6. SPLENIC ARTERY/VEINS: *Splenic Artery/Vein at Spleen: The spl enic artery/vein at the spleen are patent. *Splenic Artery/Vein at Midline: The sp lenic artery/vein at the midline are patent. Procedure Note Interface, Radiology Results Incoming - 06/26/2019 11:48 AM CDT EXAMINATION: US ABDOMINAL DOPPLER CLINICAL HISTORY: B18.2 Chronic viral hepatitis C, N18.6 End stage renal disease, Hepatitis C COMPARISON: None available TECHNIQUE: Zapien scale, color Doppler and spectral waveform analysis of the hepatic vasculature. IMPRESSION: 1. PORTAL VEINS: *Main portal vein: The main portal vein is patent with normal directionality of flow. Portal vein velocity is 24.4 cm/sec. *Left Portal Vein: The left portal vein is patent. *Right Portal Vein:The right portal vein is patent. 2. HEPATIC VEINS: *Right Hepatic Vein: The right hepatic vein is patent. *Middle Hepatic Vein: The middle hepatic vein is patent. *Left Hepatic Vein: The left hepatic vein is patent. 3. HEPATIC ARTERIES: *Right Hepatic Artery: The right hepatic artery is patent. *Left Hepatic Artery: The left hepatic artery is patent. 4. IVC: The inferior vena cava is patent . 5. SMV: The superior mesenteric vein is patent. 6. SPLENIC ARTERY/VEINS: *Splenic Artery/Vein at Spleen: The splenic artery/vein at the spleen are patent. *Splenic Artery/Vein at Midline: The splenic artery/vein at the midline are patent. Performing Organization Address [facility] one Number [facility] [address] [place] [address] * US Renal (06/20/2019 12:33 PM CDT) Specimen Narrative Performed At EXAMINATION: US RENAL [facility] CLINICAL HISTORY: N18.6 End stage hardy al disease, Renal Transplant Evaluation COMPARISON: None. IMPRESSION: 1.There is no hydronephrosis. 2.Renal cortical echogenicity is increa sed consistent with medical renal disease. 3.Right kidney measures 12 x 6.1 x 4.6 cm . There is a 1 cm cyst in the lower pole of the right kidney. 4.Left kidney measures 12.4 x 5 x 6.1 c m . There is a 1.6 cm calyceal stone in lower pole of the left kidney. 5.Bladder is unremarkable. [id number] Procedure Note Interface, Radiology Results Incoming - 06/20/2019 1:06 PM CDT EXAMINATION: US RENAL CLINICAL HISTORY: N18.6 End stage renal disease, Renal Transplant Evaluation COMPARISON: None. IMPRESSION: 1.There is no hydronephrosis. 2.Renal cortical echogenicity is increas ed consistent with medical renal disease. 3.Right kidney measures 12 x 6.1 x 4.6 c m . There is a 1 cm cyst in the lower pole of the right kidney. 4.Left kidney measures 12.4 x 5 x 6.1 cm . There is a 1.6 cm calyceal stone in lower pole of the left kidney. 5.Bladder is unremarkable. [facility]-[id number] Performing Organization Address [facility] one Number [facility] [address] [place] [address] * XR Chest 2 Vw (06/20/2019 10:40 AM CDT) Only the most recent of 2 results within the time period is included. Specimen Narrative Performed At EXAMINATION: XR CHEST 2 VW [facility] CLINICAL HISTORY: N18.6 End stage hardy al disease, Renal Transplant Evaluation IMPRESSION: There is a double-lumen central venous catheter in good position. Heart and mediastinum are normal. Lungs are clear . There is hardware in cervical spine. No change from 06/01/2019. [facility]-[id number] Procedure Note Hm Interface, Radiology Results Incoming - 06/20/2019 10:48 AM CDT EXAMINATION: XR CHEST 2 VW CLINICAL HISTORY: N18.6 End stage renal disease, Renal Transplant Evaluation IMPRESSION: There is a double-lumen central venous catheter in good position. Heart and mediastinum are normal. Lungs are clear. There is hardware in cervical spine. No change from 06/01/2019. [facility]-[id number] Performing Organization Address City/State/[facility] Ph one Number [facility] [address] [place] [address] * Echocardiogram complete w contrast and 3D if needed (06/20/2019 9:58 AM CDT) Specimen Narrative Performed At H [facility] Echo cardiography Report [address] [facility], [facility] [address] [address] Pat.Name: CHRISTOPHER SHIPLEY Pat.ID: [id number] .Date: 06/20/2019 Refer.MD: NATALIE MAN MD Exam Time: 9:17:00 AM Study Type:Routine Echo Height: 69in Weight: 209lb BSA: 2.11 m2 Age: 1 1960,58Y Sex: MALE BP: 165/84 HR: 79 bpm Sonogrphr: Eilene Zuniga RDCS Pat. Stat.:Outpatient Study Status:Final Echo Event ID:[id number] Order ID: [id number] Reason for Study:Renal Transplant Eval History / Clinical:Diabetes, Hyperlipid emia, Hypertension, ESRD Procedures: 2D Echo, Colorflow Doppler, Strain SUMMARY: LV size is normal. There is moderate co ncentric LV hypertrophy. LV EF is normal. Estimated EF is 65-69% LV GLS is lower limits of normal at -16.5%. RV size is normal. RV systolic function is normal. Diastolic dysfunction Grade I (Mild): I mpaired relaxation with normal LV filling pressures. FINDINGS: LV: LV size is normal. There i s moderate concentric LV hypertrophy. LV EF is n ormal. Overall wall motion is normal. Estimated EF is 65-69% LV GLS is lower limits of normal at -16.5%. RV: RV size is normal. RV syst olic function is normal. LA: LA volume is moderately en larged. RA: RA size is normal. AO: Aortic root diameter is mi ldly enlarged. JAMIA: No pericardial effusion. AV: No structural AV abnormali ties noted. MV: No structural MV abnormali ties noted. PV: No structural PV abnormali ties noted. A trace of pulmonic regurgitation. TV: No structural TV abnormali ties noted. Gonzales: LV relaxation is impaired. LV filling pressure is normal. Hepatic vein pressure i s normal, RA pressure < 5mmHg. Diastolic dysfunction G rade I (Mild): Impaired relaxation with normal LV filling pressures. Other: Insufficient TR jet to cynthia mate PA systolic pressure. MEASUREMENTS: 2D Parasternal [place] Ao An 2.2 cm LVPWd 1.3 cm Ao Rtd 4.2 cm Index 2 cm/m2 LA Ds 3.7 cm IVSd 1.3 cm RWT 0.5 LVIDd 5.4 cm Index 2.5 cm/m2 LV Mass 295.6 g (122-17 4) LVIDs 3.3 cm LVM Index 140.1 g/m LV%fs 38.9 % LVOT 2.2 cm LA Sng Plane LA Area 25.1 cm (8.8-23 .4) LA Vol 90.3 ml Index 42.8 ml/m2 LA LngAx 5.7 cm RA Sng Plane RA Vol 58.3 ml Index 27.6 ml/m2 RA LngAx 5 cm RA Area 18.8 cm (8.3-19 .5) LVOT Stroke Vol LVOT 2.3 cm LVOT LVOT Area 3.9 cm DOPPLER LVOT Stroke Vol LVOT TVI 24.8 cm HR 87 bpm LVOT LVOT SV 98 ml LVOT CO 8.5 l/min SVi 46.5 ml/m LVOT CI 4 l/m/m Signed 06/20/2019 11:37 AM Thomas Anton M.D. Procedure Note Interface, Radiology Results In - 06/20/2019 11:38 AM CDT Echocardiography Report [address] [place] [address] Pat.Name: CHRISTOPHER SHIPLEY.ID: [id number] St.Date: 06/20/2019 Refer.MD: NATALIE MAN MD Exam Time: 9:17:00 AM Study Type:Routine Echo Height: 69in Weight: 209lb BSA: 2.11 m2 Age: 1 1960,58Y Sex: MALE BP: 165/84 HR: 79 bpm Sonogrphr: Eileen Zuniga RDCS Pat. Stat.:Outpatient Study Status:Final Echo Event ID:[id number] Order ID: [id number] Reason for Study:Renal Transplant Eval History / Clinical:Diabetes, Hyperlipidemia, Hypertension, ESRD Procedures: 2D Echo, Colorflow Doppler, Strain SUMMARY: LV size is normal. There is moderate concentric LV hypertrophy. LV EF is normal. Estimated EF is 65-69% LV GLS is lower limits of normal at -16.5%. RV size is normal. RV systolic function is normal. Diastolic dysfunction Grade I (Mild): Impaired relaxation with normal LV filling pressures. FINDINGS: LV: LV size is normal. There is moderate concentric LV hypertrophy. LV EF is normal. Overall wall motion is normal. Estimated EF is 65-69% LV GLS is lower limits of normal at -16.5%. RV: RV size is normal. RV systolic function is normal. LA: LA volume is moderately enlarged. RA: RA size is normal. AO: Aortic root diameter is mildly enlarged. JAMIA: No pericardial effusion. AV: No structural AV abnormalities noted. MV: No structural MV abnormalities noted. PV: No structural PV abnormalities noted. A trace of pulmonic regurgitation. TV: No structural TV abnormalities noted. Gonzales: LV relaxation is impaired. LV filling pressure is normal. Hepatic vein pressure is normal, RA pressure < 5mmHg. Diastolic dysfunction Grade I (Mild): Impaired relaxation with normal LV filling pressures. Other: Insufficient TR jet to estimate PA systolic pressure. MEASUREMENTS: 2D Parasternal [place] Ao An 2.2 cm LVPWd 1.3 cm Ao Rtd 4.2 cm Index 2 cm/m2 LA Ds 3.7 cm IVSd 1.3 cm RWT 0.5 LVIDd 5.4 cm Index 2.5 cm/m2 LV Mass 295.6 g (122-174) LVIDs 3.3 cm LVM Index 140.1 g/m LV%fs 38.9 % LVOT 2.2 cm LA Sng Plane LA Area 25.1 cm (8.8-23.4) LA Vol 90.3 ml Index 42.8 ml/m2 LA LngAx 5.7 cm RA Sng Plane RA Vol 58.3 ml Index 27.6 ml/m2 RA LngAx 5 cm RA Area 18.8 cm (8.3-19.5) LVOT Stroke Vol LVOT 2.3 cm LVOT LVOT Area 3.9 cm DOPPLER LVOT Stroke Vol LVOT TVI 24.8 cm HR 87 bpm LVOT LVOT SV 98 ml LVOT CO 8.5 l/min SVi 46.5 ml/m LVOT CI 4 l/m/m Signed 06/20/2019 11:37 AM Thomas Anton M.D. Performing Organization Address [facility] one Number [facility] [address] [place] [address] * EKG 12-LEAD (06/20/2019 9:06 AM CDT) Ventricular 82 [facility]USE rate Atrial rate 82 [facility] MT interval 144 [facility] QRSD interval 100 [facility] QT interval 362 [facility] QTC interval 422 [facility] P axis 1 -15 [facility] QRS axis 1 -10 [facility] T wave axis 48 [facility] EKG impression Normal sinus rhythm-Normal [facility] MUSE ECG-In automated comparison with ECG of 01-JUN-2019 09:49,-No significant change was found- Specimen Narrative Performed At This result has an attachment that is n ot available. Performing Organization Address [facility] one Number [facility] MUSE [address] [place] [address] * POC glucose (06/06/2019 9:35 AM CDT) Only the most recent of 2 results within the time period is included. [facility] POC glucose 88 65 - 99 mg/dL [facility] Comment: BAPTISM THE Meter ID: [id number] [facility] Classified Ad Taker: [facility] Specimen Performing Organization Address [facility] [place] [address], [address] [place] [address] PATHOLOGY AND GENOMIC MEDICINE [place] [place] THE [address] [facility] [id number] * Peripheral Block (06/06/2019 7:34 AM CDT) Narrative Performed At Michael Wetzel MD 06/06/2019 7:41 AM Peripheral Block Performed by: Michael Wetzel MD Authorized by: Michael Wetzel MD Patient Location: Pre-op Start Time: 06/06/2019 7:09 AM End Time: 06/06/2019 7:16 AM Reason for Block: at surgeon's request, post-op pain management, procedure for pain Staff: Anesthesiologist: Michael Wetzel rd, MD Performed by: Anesthesiologist Preprocedure: patient identified, IV ch ecked, site and side verified, risks and benefits discussed, procedure verified, surgical consent complete, patient position confirmed, m onitors and equipment checked, pre-op evaluation complete and site [facility] Time Out Performed: 06/06/2019 7:09 AM Peripheral Nerve Block: Patient Position: Supine Prep: ChloraPrep Monitoring: Blood pressure monitori ng, continuous pulse oximetry and heart rate Block Type: Supraclavicular Laterality: Left Injection Technique: Single injection Procedures: ultrasound guided Ultrasound documentation: Still image s obtained Local Infiltration (See MAR for details ): Ropivacaine Needle: Needle Type: Short-bevel Needle Gauge: 21 G Needle Length: 10 cm Assessment: Injection Assessment: Visualized ne edle/local anesthetic surrounding nerve, visualized pertinent vascular st ructures and nerves, needle tip visualized at all times during injectio n of medication, intermittent aspiration during local anesthetic admi nistration and no symptoms of intraneural/intravenous injection Paresthesia Pain: None Heart Rate Change: No Slow Fractionated Injection: Yes Block outcome: No apparent complica tions, patient comfortable and patient tolerated procedure well Notes: Sterile technique used with hat, jose ves and mask * Potassium level (06/06/2019 5:34 AM CDT) Potassium 4.8 3.5 - 5.0 mEq/L [facility] Specimen Plasma specimen Performing Organization Address City/State/[place] [address], [address] [place] [address] PATHOLOGY AND GENOMIC MEDICINE [facility] [address] [facility] [id number] * ECG Pre/Post Op (06/01/2019 9:49 AM CDT) Ventricular 79 [facility] MUSE rate Atrial rate 79 [facility] MT interval 162 [facility] QRSD interval 92 [facility] QT interval 364 [facility] QTC interval 417 [facility] P axis 1 21 [facility] MUSE QRS axis 1 -7 [facility] T wave axis 46 [facility] EKG impression Normal sinus rhythm-Normal [facility] MUSE ECG-No previous ECGs available- Specimen Narrative Performed At This result has an attachment that is n ot available. Performing Organization Address [facility] one Number [facility] MUSE [address] [place] [address] * Gram stain (05/23/2019 1:23 PM CDT) Gram stain No WBC's or organisms seen. [facility] result Comment: [facility] Specimen Information HOSPITAL Specimen Source: Urine Specimen Site: Clean catch Specimen Urine Performing Organization Address [facility] one Number [facility] DEPARTMENT OF [address] [place] [address] PATHOLOGY AND GENOMIC MEDICINE [address] * Urine culture (05/23/2019 1:23 PM CDT) Pathologist [facility] Urine culture Alpha Strep, not pneumococcus [facility] isolate >10-5 cfu/ml [facility] () [facility] Comment: Specimen Information Specimen Source: Urine Specimen Site: Clean catch Specimen Urine Performing Organization Address [facility] one Number [facility] DEPARTMENT OF [address] [place] [address] PATHOLOGY AND GENOMIC MEDICINE [address] * Nicotine and cotinine, serum (05/23/2019 11:22 AM CDT) Nicotine <2.0 0.0 - 1.9 ng/mL [facility] Cotinine <2.0 0.0 - 1.9 ng/mL [facility] Comment: [facility] This test was developed and HOSPITAL its performance characteristics determined by the Department of Pathology and Genomic Medicine, [facility]. Serum nicotine and metabolite cotinine are tested by HPLC tandem mass spectrometry. It has not been cleared or approved by FDA. The laboratory is regulated under CLIA as qualified to perform high-complexity testing. This test is used for clinical purposes. It should not be regarded as investigational or for research. Specimen Blood Performing Organization Address [facility] one Number [facility] DEPARTMENT OF [address] [place] [address] PATHOLOGY AND GENOMIC MEDICINE [address] * Urinalysis screen and microscopy, with reflex to culture (05/23/2019 11:22 AM CDT) Pathologist [facility] Specimen site Clean catch [facility] Color, UA Yellow [facility] Appearance, UA Cloudy [facility] Specific 1.017 1.001 - 1.035 [facility] gravity, [facility] pH, UA 7.0 5.0 - 8.5 [facility] Protein, UA 3+ (A) Negative [facility] Glucose, UA 3+ (A) Negative [facility] Ketones, UA Negative Negative [facility] Bilirubin, UA Negative Negative [facility] Blood, UA Negative Negative [facility] Nitrite, UA Negative Negative [facility] Urobilinogen, <2.0 <2.0 [facility] Leukocyte Negative Negative [facility] esterase, [facility] Epithelial 4 /HPF [facility] cells, [facility] WBC, UA 10 (H) 0 - 1 /HPF [facility] RBC, UA None seen 0 - 5 /HPF [facility] Bacteria, UA Few None seen [facility] Yeast, UA None seen [facility] Yeast with None seen [facility] Hyaline casts, 10 /LPF [facility] Specimen Urine Performing Organization Address City/[facility] Ph one Number [facility] DEPARTMENT OF [address] [place] [address] PATHOLOGY AND GENOMIC MEDICINE [address] * Syphilis total antibody (05/23/2019 11:22 AM CDT) [facility] Syphilis total Non-reactiveComment: No Non-reactive [place] [facility] antibody serological evidence of [facility] syphilis infection. HOSPITAL Specimen Blood Performing Organization Address City/State/[facility] Ph one Number [facility] DEPARTMENT OF [address] [place] [address] PATHOLOGY AND GENOMIC MEDICINE [address] * HCV qualitative by PCR (05/23/2019 11:22 AM CDT) [facility] HCV PCR result Detected (A) Not-Detected [facility] HCV RNA See link below for PDF Lab [facility] qualitative ReportComment: Case Number: [facility] [id number] HOSPITAL Specimen Performing Organization Address City/[facility] Ph one Number [facility] DEPARTMENT OF [address] [place] [address] PATHOLOGY AND GENOMIC MEDICINE [facility] [address] [place] [address] * HIV Ag/Ab combination (05/23/2019 11:22 AM CDT) Pathologist [facility] HIV Ag/Ab Non-reactive Non-reactive [facility] Specimen Blood Performing Organization Address City/State/Zipcode Ph one Number [facility] DEPARTMENT OF [address] [place] [address] PATHOLOGY AND GENOMIC MEDICINE [address] * TB T-SPOT (05/23/2019 11:22 AM CDT) Pathologist [facility] TB T-SPOT SEE NOTE [facility] Comment: REF LAB T-SPOT TUBERCULOSIS Nil Control: 1 Panel A: 0 Panel B: 16 Positive Control: SAT Result: POSITIVE NOTE: TMTC INDICATES TOO MANY SPOTS TO COUNT SAT INDICATES THE WELL WAS SATURATED RESULTS INTERPRETATION: RESULTS ARE NEGATIVE WHEN (PANEL A-NIL) OR (PANEL B-NIL) <= 4 SPOTS, INCLUDING VALUES LESS THAN ZERO. RESULTS ARE POSITIVE WHEN (PANEL A-NIL) OR (PANEL B-NIL) >= 8 SPOTS RESULTS ARE BORDERELINE WHEN EITHER (PANEL A-NIL) OR (PANEL B-NIL) = 5,6,0R 7. THE TEST IS INVALID WHEN EITHER OF THE FOLLOWING CONDITIONS IS MET: 1.) THE NIL CONTROL HAS >10 SPOTS 2.) THE MITOGEN (POSITIVE CONTROL) HAS <20 SPOTS AND BOTH (PANEL A-NIL) AND (PANEL B-NIL) <= 4 SPOTS. M. TUBERCULOSIS INFECTION UNLIKELY, BUT CANNOT BE EXCLUDED ESPECIALLY WHEN: 1. ANY ILLNESS IS CONSISTENT WITH TB DISEASE. 2. LIKELIHOOD OF PROGRESSION TO DISEASE (e.g. DUE TO IMMUNOSUPPRESSION) IS INCREASED. LIMITATIONS: DIAGNOSING OR EXCLUDING TUBERCULOSIS DISEASE, AND ASSESSING THE PROBABILITY OF LTBI, REQUIRES A COMBINATION OF EPIDEMIOLOGICAL, HISTORICAL, MEDICAL, AND DIAGNOSTIC FINDINGS THAT SHOULD BE TAKEN INTO ACCOUNT WHEN INTERPRETING T-SPOT.TB REFER TO THE MOST RECENT CDC GUIDANCE (HTTP: //WWW.CDC.GOV/NCHSTP/TB) FOR DETAILED RECOMMENDATIONS ABOUT DIAGNOSING TB INFECTION (INCLUDING DISEASE) AND SELECTING PERSONS FOR TESTING. 1.) A FALSE NEGATIVE RESULT CAN BE CAUSED BY INCORRECT BLOOD SAMPLE COLLECTION OR IMPROPER HANDLING OF THE SPECIMEN, AFFECTING LYMPHOCYTE FUNCTION 2.) THE PERFORMANCE OF T-SPOT.TB HAS NOT BEEN ADEQUATELY EVALUATED WITH SPECIMENS FROM INDIVIDUALS YOUNGER THAN AGE 17 YEARS, IN WOMEN, AND IN PATIENTS WITH HEMOPHILIA. 3-) A FALSE POSITIVE RESULT WAS OBTAINED FOR T-SPOT.TB WHEN TESTED IN SUBJECTS WITH M. XENOPI, M. KANSASII, AND M. GORDONAE. WHILE ESAT-6 AND CFP-10 ANTIGENS ARE ABSENT FROM BCG STRAINS OF M. BOVIS AND FROM MOST ENVIRONMENTAL MYCOBACTERIA, IT IS POSSIBLE THAT A POSITIVE T-SPOT.TB RESULT MAY BE DUE TO INFECTION WITH M. KANSASII, M. SZULGAI, M. GORDONAE, OR M. MARINUM. ALTERNATIVE TESTS WOULD BE REQUIRED IF THESE INFECTIONS ARE SUSPECTED. 4.) A NEGATIVE TEST RESULT DOES NOT EXCLUDE THE POSSIBILITY OF EXPOSURE TO, OR INFECTION WITH, M. TUBERCULOSIS. PATIENTS WITH RECENT EXPOSURE TO TB INFECTED INDIVIDUALS EXHIBITING A NEGATIVE T-SPOT.TB RESULT SHOULD BE CONSIDERED FOR RETESTING WITHIN 6 WEEKS OR IF OTHER RELEVANT CLINICAL SYMPTOMS INDICATE POSSIBLE INFECTION. 5.) A POSITIVE TEST RESULT DOES NOT RULE IN ACTIVE TB DISEASE; OTHER TESTS SHOULD BE PERFORMED TO CONFIRM THE DIAGNOSIS OF ACTIVE TB DISEASE SUCH SPUTUM SMEAR AND CULTURE, PCR AND CHEST RADIOGRAPHY. 6.) T-SPOT.TB TEST HAS NOT BEEN EVALUATED IN SUBJECTS WHO HAVE RECEIVED >1 MONTH OF ANTI-TB THERAPY. 7. ) REFRIGERATED AND FROZEN SAMPLES ARE NOT RECOMMENDED FOR USE WITH T=SPOT.TB TEST. Performed by: [facility] Molecular Tuberculosis Laboratory [facility] ([id number]) [place], [place] [address] Specimen Blood Performing Organization Address City/State/[facility] Ph one Number [facility] DEPARTMENT OF [address] [place] [id number] PATHOLOGY AND GENOMIC MEDICINE [facility] * Hepatitis B surface Ab, quantitative (05/23/2019 11:22 AM CDT) Hepatitis B 56.25 IU/L [facility] surface Ab Comment: The anti-HBs is greater than or equal to 10 IU/L. This patient has either had an antibody response to HBV vaccination, received a transfusion, or has recovered from HBV infection. This patient should be considered immune to hepatitis B. An anti-HBs result greater than or equal to 10 IU/L implies immunity. For post-vaccination antibody testing guidelines for the general public refer to MMWR September 10, 2005/Vol. 54(No. 16);1-23, and for healthcare workers refer to MMWR September 07, 2013/Vol. 62(No. 10);1-19. Reference Interval: anti-HBs 9.99 IU/L or less ....... Negative 10.00 IU/L or greater .... Positive Results greater than 1,000.00 IU/L are reported as greater than 1,000.00 IU/L. This assay should not be used for blood donor screening, associated re-entry protocols, or for screening Human Cell, Tissues and Cellular and Tissue-Based Products (HCT/P). Performed by [facility], [address] [place] [id number] [email or web address], Max Chung MD - Lab. Director Specimen Serum Performing Organization Address [facility] one Number [facility] [address] [place] [address] [facility] [address] [place] [id number] * Hepatitis C antibody (05/23/2019 11:22 AM CDT) [facility] Hepatitis C Ab Reactive (A) Non-reactive [facility] Comment: [facility] HCV antibody testing initially HOSPITAL Reactive. Confirmation by HCV RNA PCR will be performed and reported separately when completed. Repeat HCV RNA PCR will not be performed if done within 30 days. Specimen Blood Performing Organization Address [facility] Ph one Number [facility] DEPARTMENT OF [address] [place] [address] PATHOLOGY AND [facility] MEDICINE [address] * Hepatitis A antibody total (05/23/2019 11:22 AM CDT) [facility] Hepatitis A Non-reactive Non-reactive [facility] total Ab [facility] Specimen Blood Performing Organization Address City/[facility] Ph one Number [facility] DEPARTMENT OF [address] [place] [address] PATHOLOGY AND GENOMIC MEDICINE [address] * Drug manzano 9, ser/william, scrn w/rflx to conf (05/23/2019 11:22 AM CDT) Pathologist [facility] Amphetamines, Negative Cutoff 30 ng/mL [facility] B s/p, screen Methamphetamine Negative Cutoff 30 ng/mL [facility] AB , s/p, screen Barbiturates, Negative Cutoff 75 ng/mL [facility] LA B s/p, screen Benzodiazepines Negative Cutoff 75 ng/mL [facility] , s/p, screen Cocaine, s/p, Negative Cutoff 30 ng/mL [facility] B screen Methadone, s/p, Negative Cutoff 40 ng/mL [facility] AB screen Opiates, s/p, Negative Cutoff 30 ng/mL [facility] LA B screen Oxycodone, s/p, Negative Cutoff 30 ng/mL [facility] AB screen Phencyclidine, Negative Cutoff 15 ng/mL [facility] LA B s/p, screen Cannabinoids, Negative Cutoff 30 ng/mL [facility] LA B s/p, screen Drug screen See Note [facility] comments, serum Comment: INTERPRETIVE INFORMATION: Drug Screen 9 Panel, Serum or Plasma - Immunoassay Screen with Reflex to Mass Spectrometry Confirmation/Quantitation 1. Methodology: Qualitative Immunoassay Screen 2. Drugs/Drug classes reported as "Positive" are automatically reflexed to mass spectrometry confirmation/quantitation testing. An immunoassay unconfirmed positive screen result may be useful for medical purposes but does not meet forensic standards. 3. The absence of expected drug(s) and/or drug metabolite(s) may indicate non-compliance, inappropriate timing of specimen collection relative to drug administration, poor drug absorption, or limitations of testing. The concentration at which the screening test can detect a drug or metabolite varies within a drug class. Specimens for which drugs or drug classes are detected by the screen are automatically reflexed to a second, more specific technology (mass spectrometry). The concentration value must be greater than or equal to the cutoff to be reported as positive. Interpretive questions should be directed to the laboratory. 4. For medical purposes only; not valid for forensic use. Test developed and characteristics determined by [facility]. See Compliance Statement B: [email or web address]/ Performed by [facility], [address] [place] [address] [id number] [email or web address], Max Chung MD - Lab. Director Specimen Serum Performing Organization Address City/State/[facility] Ph one Number [facility] [address] [place] [address] [facility] [address] [place] [address] * Hepatitis B core antibody total (05/23/2019 11:22 AM CDT) Pathologist [facility] Hepatitis B Non-reactive Non-reactive [facility] core total Ab [facility] Specimen Blood Performing Organization Address City/[facility] Ph one Number [facility] DEPARTMENT OF [address] [place] [address] PATHOLOGY AND [facility] MEDICINE [address] * C-peptide (05/23/2019 11:22 AM CDT) [facility] C-peptide 13.6 (H) 1.1 - 4.4 ng/mL [facility] Specimen Plasma specimen Performing Organization Address City/[facility] Ph one Number [facility] DEPARTMENT OF [address] [place] [address] PATHOLOGY AND [facility] MEDICINE [address] * Hepatitis B surface antibody (05/23/2019 11:22 AM CDT) Pathologist [facility] Hepatitis B Reactive (A) Non-reactive [facility] surface Ab [facility] Specimen Blood Performing Organization Address City/[facility] Ph one Number [facility] DEPARTMENT OF [address] [place] [address] PATHOLOGY AND [facility] MEDICINE [address] * Hepatitis B surface antigen (05/23/2019 11:22 AM CDT) Pathologist [facility] Hepatitis B Non-reactive Non-reactive [facility] surface Ag [facility] Specimen Blood Performing Organization Address City/[facility] Ph one Number [facility] DEPARTMENT OF [address] [place] [address] PATHOLOGY AND [facility] MEDICINE [address] * Partial thromboplastin time, activated (05/23/2019 11:22 AM CDT) Pathologist [facility] PTT 31.6 23.0 - 36.0 sec [facility] Comment: [facility] PTT therapeutic range for HOSPITAL unfractionated heparin is 61.0-112.0 seconds which corresponds to Anti-Xa 0.3-0.7 U/ml. Specimen Blood Performing Organization Address City/[facility] Ph one Number [facility] DEPARTMENT OF [address] [place] [address] PATHOLOGY AND GENOMIC MEDICINE [address] * Serum electrophoresis (05/23/2019 11:22 AM CDT) Protein 7.9 6.3 - 8.3 g/dL [facility] Comment: [facility] 4.6-7.0 g/dL 1 week 4.4-7.6 g/dL 7 months-1year 5.1-7.3 g/dL 1-2 years 5.6-7.5 g/dL >3 years 6.0-8.0 g/dL 18-150 6.3-8.3 g/dL [facility] albumin 5.18 4.00 - 5.30 g/dL [facility] SPE alpha 1 0.18 0.10 - 0.25 g/dL [facility] SPE alpha 2 0.88 (H) 0.58 - 0.84 g/dL [facility] SPE beta 0.72 0.50 - 1.10 g/dL [facility] SPE gamma 0.94 0.60 - 1.30 g/dL [facility] SPE extended See Comment [facility] interpretation Comment: [facility] Increased alpha-2 globulins HOSPITAL may be due to increased haptoglobin in an acute phase response or increased alpha-2 macroglobulin in diabetes mellitus. SPE See CommentComment: Arun Barnhart MD; Marti Schilling, PhD; ARABELLA Turner MD HOSPITAL Specimen Serum Performing Organization Address City/[facility] Ph one Number [facility] DEPARTMENT OF [address] [place] [address] PATHOLOGY AND GENOMIC MEDICINE [address] * Prostate specific antigen (05/23/2019 11:22 AM CDT) PSA 0.9 0.0 - 4.0 ng/mL [facility] Comment: [facility] The NESSA 8000 PSA immunoassay [facility] was used. Results obtained with different assay methods or kits should not be used interchangeably and may be different. 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
--- OUTSIDE RECORDS SUMMARY | 2020-02-07 10:33 | XMS REPORT | Clinical Summary ---
Author Author [facility] Address Unknown Phone Unavailable Care Team Providers Care Beater Engineer Name Role Phone Jennifer Mustafa MD PCP Unavailable Allergies No Known Allergies Medications End Date Status Medication Sig Dispensed Refills Start Date Active metFORMIN (GLUMETZA) 1000 Take 1,000 mg 0 MG (MOD) 24 hr tablet by mouth 2 (two) times daily with breakfast and dinner. Active insulin glargine (LANTUS) Inject 26 0 100 unit/mL injection Units subcutaneousl y nightly Use as directed . Active olmesartan-hydrochlorothi Take 1 tablet 0 azide (BENICAR HCT) by mouth 20-12.5 mg per tablet daily. Active multivitamin per tablet Take 1 tablet 0 by mouth daily. Active Problems Not on file Social History Date Tobacco Use Types Packs/Day Years Used Former Smoker Smokeless Tobacco: Snuff Current User Alcohol Use Drinks/Week oz/Week Comments No Sex Assigned at Date Recorded Not on file Industry Job Start Date Occupation Not on file Not on file Not on file Travel End Travel History Travel Start No recent travel history available. Last Filed Vital Signs Not on file Plan of Treatment Not on file Results Not on fileafter 02/06/2019 Insurance Payer Benefit Subscriber ID Type Phone Address Plan / Group MEDICAID - MEDICAID MGD GABINO xxxxxxxxxx Medica id CARE COMM STAR Contracted PLAN [id number]
--- OUTSIDE RECORDS SUMMARY | 2020-02-07 10:33 | XMS REPORT ---
Author Author [facility] Organization [facility] Address [address] [place] [address] Phone Unavailable Care Team Providers Care Brim Edge Trimmer Name Role Phone Anusha WOOD, Cuate PCP Arik Garcia Attphys Unavailable Brittany WUW, Tatiana Attphys Unavailable Kathy Cervantes Attphys Unavailable Alfredo Javier MD Attphys Madie WOOD, Arturo Attphys Richard THURMAN, Carmenza Attphys Unavailable Jerrell [facility], Bee Attphys Unavailable Tonie WOOD, Morenita Hull Attphys Fabio AGUIRREN, Raine Attphys Unavailable Fadi WOOD, Elias Olsen Attphys Donovan WOOD, Dyan Mccracken Attphys Godwin DIAZ, M Venessa Attphys Unavailable Thu WOOD, Jero Attphys Louisa WOOD, Judy Attphys Mignon THURMAN, Agustín Tony Attphys Unavailable Rashard WOOD, Haile Rodriguez Attphys Nick WOOD, Estevan Pichardo Attphys Elio DIAZ, Claudine Attphys Unavailable Bev RN, Cristina Attphys Unavailable Madeleine Holm Attphys Unavailable Anjel RN, Ministerio Attphys Unavailable Francisca Fernandez Attphys Unavailable Sancho WOOD, Marvin Tinoco Attphys Talisha Olmos Attphys Unavailable Cesario DIAZ, Bettie Attphys Unavailable Srinath THURMAN, Marily Attphys Unavailable HU APONTE Admphys Unavailable Payers Payer Name Policy Type Policy Number Effective Date Expiration Date S melo HUMANA MEDICAREHUMANA MEDICARE PPO/PFFS/ERS [id number] xxxxxxxxx 2019 00:00:00 Cirilo Washburn Problems Condition Name Condition Details Condition Category Status Onset Date Resolution Date Last Treatment Date Treating Clinician Comments Source LTBI (latent tuberculosis infection) LTBI (latent tuberculos is infection) Disease Active 2019-07-30 00:00:00 Cirilo Washburn 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 Active 2019-06-13 00:00:00 Cirilo Washburn Primary insomnia Primary insomnia Disease Active 2019-06-13 00:00:00 Cirilo Washburn Chewing tobacco nicotine dependence in remission Chewi ng tobacco nicotine dependence in remission Disease Active 2019-06-13 00:00:00 Cirilo Washburn Adjustment disorder with depressed mood Adjustment disorder with depressed mood Disease Active 2019-06-13 00:00:00 Cirilo Washburn Chronic pain Chronic pain Disease Active 2019-06-13 00:00:00 Cirilo Washburn Vocal tic disorder Vocal tic disorder Disease Active 2019-06-13 00:00:0 0 Cirilo Washburn Essential hypertension Essential hypertension Disease Active 2019-05-30 00:00:00 Last Assessment & Plan: Elevated in clinic today. Patient to follow up with his PCP and board attendant for possible adjustment of his outpatient regimen. Cirilo Washburn Pre-transplant evaluation for kidney transplant Pre-tr ansplant evaluation for kidney transplant Disease Active 2019-05-23 00:00:00 Cirilo Washburn ESRD (end stage renal disease) ESRD (end stage renal disease) Disea se Active 2019-05-23 00:00:00 Last Assessm ent & Plan: Patient is in need of permanent access. They currently dialyze via a right internal jugular tunneled dialysis catheter. I discussed with them kidney transplant, peritoneal dialysis as well as hemodialysis. I discussed with them the differences between catheters, fistulas and grafts. We discussed the patient's dialysis needs and the need for having multiple options going forward to reduce the need for extended hemodialysis catheter time. After review of the patient's options we agreed that the best option for the patient will be a left arm fistula. Decision for surgery made. OR for left arm fistula creation. Consent signed in clinic. 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 Cirilo Washburn Allergies, Adverse Reactions, Alerts Allergy Name Allergy Type Status Severity Reaction(s) Onset Date Inacti ve Date Treating Clinician Comments Source No Known Allergies DA Active U 2019-08-06 00:00:00 [facility] No Known Allergies DA Active U 2014-01-09 00:00:00 [facility] Family History Family Member Diagnosis Comments Start Date Stop Date Source Natural father Heart disease Cirilo Washburn Natural mother Cancer [facility] Natural mother Leukemia [facility] Social History Social Habit Start Date Stop Date Quantity Comments Source History of tobacco use Current smoker Cirilo Washburn History SDOH Alcohol Std Drinks Cirilo Washburn History SDOH Alcohol Binge Cirilo Washburn Sex Assigned At [facility] Cigarettes smoked current (pack per day) - Reported 00:00:00 2019-11-07 00:00:00 Cirilo Washburn Cigarette pack-years 2019-11-07 00:00:00 2019-11-07 00:00:00 Cirilo Washburn Alcohol intake 2019-11-07 00:00:00 2019-11-07 00:00:00 Lifetime non-drinker (finding) Cirilo Washburn History SDOH Alcohol Frequency 2019-05-30 00:00:00 2019-05-30 00:00:0 0 1 Cirilo Washburn Smoking Status Start Date Stop Date Source Former smoker 2019-11-07 00:00:00 2019-11-07 00:00:00 Cirilo Washburn Medications Ordered Medication Name Filled Medication Name Start Date Stop Da te Current Medication? Ordering Clinician Indication Dosage Frequency Signature (SIG) Comments Components Source glipiZIDE (GLUCOTROL) 2.5 MG 24 hr tablet 2019-11-07 10:35:34 Yes 2.5mg QD Take 2.5 mg by mouth daily. Miguel Washburn atorvastatin (LIPITOR) 20 MG tablet 2019-11-07 10:35:34 Yes 20mg QD Take 20 mg by mouth daily. Default OP ins Hood rosalia Washburn amLODIPine (NORVASC) 10 mg tablet 2019-11-07 10:35:34 Yes 10mg QD Take 10 mg by mouth daily. Cirilo Washburn hydrALAZINE (APRESOLINE) 100 MG tablet 2019-11-07 10:35:34 Yes 100mg Q.5D Take 100 mg by mouth 2 (two) times a day. Cirilo Washburn omega-3 fatty acids-fish oil (FISH OIL) 300-1,000 mg capsule 2019-11-07 10:35:34 Yes 2g QD Take 2 g by mouth daily. Cirilo Washburn temazepam (RESTORIL) 15 mg capsule 2019-08-27 00:00:00 23:59:00 No TAKE ONE (1) TABLET BY MOUTH EVERY NIGHT AT BEDTIME Cirilo Washburn isoniazid (NYDRAZID) 300 MG tablet 2019-07-30 00:00:00 23:59:00 No 300mg QD Take 1 tablet (300 mg total) by mouth da zandra for 270 days. Cirilo Washburn pyridoxine, vitamin B6, (vitamin B-6) 50 MG tablet 2019-07-30 00:00:00 2020-04-25 23:59:00 No 50mg QD Take 1 tablet (50 mg total) by mouth daily for 270 days. Cirilo Washburn temazepam (RESTORIL) 15 mg capsule 2019-07-20 00:00:00 201 05-31-09 00:00:00 No 15mg QD Take 15 mg by mouth nightly as needed fo r sleep. Cirilo Washburn glecaprevir-pibrentasvir (MAVYRET) 100-40 mg tablet 2019-07-12 00:00:00 2019-09-05 23:59:00 No 3{tbl} QD Take 3 tab lets by mouth daily for 55 days. Cirilo Washburn EPCLUSA 400-100 mg tablet 2019-07-12 00:00:00 2019-07-12 00:00:0 0 No 1{tbl} QD Take 1 tablet by mouth daily. Cirilo Washburn acetaminophen-codeine (TYLENOL WITH CODEINE #3) 300-30 mg pe r tablet 2019-06-06 00:00:00 2019-06-13 23:59:00 No acute pain 1{tbl} Q4H Take 1 tablet by mouth every 4 (four) hours as needed for moderate pain for up to 7 days .Acute Pain. Cirilo Washburn Vital Signs Vital Name Observation Time Observation Value Comments Source Systolic blood pressure 2019-12-11 09:07:00 156 mm[Hg] Radha ent stated that he hasn't taken his bp medication yet. Cirilo Washburn Diastolic blood pressure 2019-12-11 09:07:00 83 mm[Hg] Pat ient stated that he hasn't taken his bp medication yet. Cirilo Washburn Heart rate 2019-12-11 09:07:00 80 /min Cirilo Washburn Body temperature 2019-12-11 09:07:00 36.39 Rosang[facility] Respiratory rate 2019-12-11 09:07:00 18 /min [facility] [place] [facility] Body height 2019-12-11 09:07:00 180.3 cm Cirilo Washburn Body weight 2019-12-11 09:07:00 101.424 kg Cirilo Washburn BMI 2019-12-11 09:07:00 31.19 kg/m2 Cirilo Washburn Oxygen saturation in Arterial blood by Pulse oximetry 12-10 09:07:00 98 /min Cirilo Washburn Procedures Procedure Date / Time Performed Performing Clinician Sour e HC COMPLETE BLD COUNT W/AUTO DIFF 2019-11-28 09:05:00 Paul Ramachandran COMPREHENSIVE METABOLIC PANEL 2019-11-28 09:05:00 Arturo Ramachandran PROTHROMBIN TIME WITH INR 2019-11-28 09:05:00 Arturo Ramachandran HEPATITIS C VIRUS QUANTITATIVE BY PCR 2019-11-28 09:05:00 Arturo Ramachandran ESTIMATED GFR 2019-11-28 09:05:00 Arturo Ramachandran odjozef HC COMPLETE BLD COUNT W/AUTO DIFF 2019-09-05 09:15:00 Paul Ramachandran COMPREHENSIVE METABOLIC PANEL 2019-09-05 09:15:00 Arturo Ramachandran PROTHROMBIN TIME WITH INR 2019-09-05 09:15:00 Arturo Ramachandran HEPATITIS C VIRUS QUANTITATIVE BY PCR 2019-09-05 09:15:00 Arturo Ramachandran ESTIMATED GFR 2019-09-05 09:15:00 Arturo Ramachandran HC COMPLETE BLD COUNT W/AUTO DIFF 2019-08-08 08:57:00 Paul Ramachandran COMPREHENSIVE METABOLIC PANEL 2019-08-08 08:57:00 Arturo Ramachandran PROTHROMBIN TIME WITH INR 2019-08-08 08:57:00 Arturo Ramachandran HEPATITIS C VIRUS QUANTITATIVE BY PCR 2019-08-08 08:57:00 Arturo Ramachandran ESTIMATED GFR 2019-08-08 08:57:00 Arturo Ramachandran OXALATE, URINE 2019-07-31 14:30:[address] ANGIOGRAM ABDOMEN PELVIS W AND OR WO CONTRAST 2019-07-30 11:21:04 Della Stevenson LIPID PANEL 2019-07-30 07:14:00 Della Stevenson FASTING GLUCOSE LEVEL 2019-07-30 07:14:00 Della Stevenson CREATININE LEVEL 2019-07-30 07:14:00 Della Stevenson PHOSPHORUS LEVEL 2019-07-30 07:14:00 Della Stevenson LDH 2019-07-30 07:14:00 Kiswahili, Della Washburn HEMOGLOBIN A1C 2019-07-30 07:14:00 Kiswahili, Della Washburn CYTOMEGALOVIRUS AB, IGG 2019-07-30 07:14:00 Kiswahili, Della Washburn CYTOMEGALOVIRUS AB, IGM 2019-07-30 07:14:00 Kiswahili, Della Washburn TRESSA-MENDEZ VIRUS ANTIBODY TEST 2019-07-30 07:14:00 Kiswahili, Karsten Washburn HERPES SIMPLEX VIRUS BY PCR 2019-07-30 07:14:00 Kiswahili, Della Washburn HSV 1 & 2 GLYCOPROTEIN G AB, IGG 2019-07-30 07:14:00 Kiswahili, Karsten Washburn HSV TYPE 1/2 COMBINED AB, IGM 2019-07-30 07:14:00 Kiswahili, Della Washburn PARATHYROID HORMONE 2019-07-30 07:14:00 Kiswahili, Della [facility] ABORH - TRANSPLANT 2019-07-30 07:14:00 Kiswahili, Della Varghese [facility] URIC ACID LEVEL 2019-07-30 07:14:00 Kiswahili, Della Washburn CALCIUM LEVEL, URINE, RANDOM 2019-07-30 07:14:00 Kiswahili, Della [facility] CREATININE LEVEL, URINE, RANDOM 2019-07-30 07:14:00 Kiswahili, Lamar Washburn ALPHA FETOPROTEIN 2019-07-30 07:14:00 Kiswahili, Della Cotton n [facility] KAPPA LAMBDA FREE LIGHT CHAIN WITH RATIO 2019-07-30 07:14:00 Kiswahili, Della Washburn ESTIMATED GFR 2019-07-30 07:14:00 Kiswahili, Della Washburn LOW RESOLUTION FULL TYPING BY SSO 2019-07-30 07:14:00 Kiswahili, Elizabeth Washburn SINGLE ANTIGEN BEADS 2019-07-30 07:14:00 Kiswahili, Della [facility] HLA AUTOLOGOUS CROSSMATCH 2019-07-30 07:14:00 Kiswahili, Della Washburn C1Q CLASS 1 & 2 ANTIBODY 2019-07-30 07:14:00 Kiswahili, Della Morenita Washburn MISCELLANEOUS REFERRAL TEST 2019-07-30 07:14:00 Kiswahili, Della Guillen ace Cirilo Washburn OCCULT BLOOD, STOOL 2019-07-29 09:16:00 Kiswahili, Della [facility] OCCULT BLOOD, STOOL 2019-07-28 10:00:00 Kiswahili, Della Xavier Miguel geo [facility] OCCULT BLOOD, STOOL 2019-07-27 10:00:00 Kiswahili, Della Morenita Washburn HC COMPLETE BLD COUNT W/AUTO DIFF 2019-07-25 09:25:00 Paul Ramachandran COMPREHENSIVE METABOLIC PANEL 2019-07-25 09:25:00 Arturo Ramachandran PROTHROMBIN TIME WITH INR 2019-07-25 09:25:00 Arturo Ramachandran HEPATITIS C VIRUS QUANTITATIVE BY PCR 2019-07-25 09:25:00 Arturo Ramachandran ESTIMATED GFR 2019-07-25 09:25:00 Arturo Ramachandran Meth odjozef GGT 2019-06-26 12:00:00 Arturo Ramachandran ALPHA FETOPROTEIN 2019-06-26 12:00:00 Arturo Ramachandran [facility] HEPATITIS E VIRUS AB, IGG BY SIRI 2019-06-26 12:00:00 Agustín Ramachandran HEPATITIS BE AB 2019-06-26 12:00:00 Arturo Ramachandran odjozef HEPATITIS BE AG 2019-06-26 12:00:00 Arturo Ramachandran odjozef HEPATITIS DELTA ANTIBODY 2019-06-26 12:00:00 Arturo Ramachandran HEPATITIS C VIRUS QUANTITATIVE BY PCR 2019-06-26 12:00:00 Arturo Ramachandran HEPATITIS C GENOTYPE 2019-06-26 12:00:00 Arturo Ramachandran US ABDOMINAL WITH LIVER ELASTOGRAPHY 2019-06-26 11:06:05 Arturo Ramachandran US ABDOMINAL DOPPLER 2019-06-26 11:05:34 Arturo Ramachandran US RENAL 2019-06-20 12:33:39 Nawaf [facility] XR CHEST 2 VW 2019-06-20 10:40:10 Donovan Nawaf Zaidi Cirilo [facility] TTE COMPLETE, WO CONTRAST, W DOPPLER ([id number]) 2019-06-20 09:5 8:06 Donovan Kofijeancarlos Washburn ECG 12-LEAD 2019-06-20 09:06:36 Donovan Nawaf Zaidi [facility] POC GLUCOSE 2019-06-06 09:35:00 Hu Aponte Rodolfobrett [facility] TX AN PERIPHERAL BLOCK PROCEDURE FOR PAIN 2019-06-06 07:34:35 Pe na, Hugo Cirilo Washburn CREATION, AV FISTULA 2019-06-06 07:22:00 Hu Aponte POC GLUCOSE 2019-06-06 05:54:00 Hu Aponte Elias Cirilo [facility] POTASSIUM LEVEL 2019-06-06 05:34:00 Mateus [facility] XR CHEST 2 VW 2019-06-01 11:00:21 Hu Aponte Rodolfobrett [facility] ECG PRE/POST OP 2019-06-01 09:49:14 Hu Aponte Rodolfobrett [facility] URINE CULTURE 2019-05-23 13:23:00 Donovan Kofijeancarlos [facility] GRAM STAIN 2019-05-23 13:23:00 Donovan Kofijeancarlos Alcocerjarrell Cirilo [facility] COMPREHENSIVE METABOLIC PANEL 2019-05-23 11:22:00 Nawaf Man URINALYSIS SCREEN AND MICROSCOPY, WITH REFLEX TO CULTURE 201 05-28-04 11:22:00 Nawaf Man HIV AG/AB COMBINATION 2019-05-23 11:22:00 Nawaf Man HEPATITIS A ANTIBODY TOTAL 2019-05-23 11:22:00 Nawaf Man HEPATITIS B CORE ANTIBODY TOTAL 2019-05-23 11:22:00 Nawaf Man HEPATITIS B SURFACE ANTIGEN 2019-05-23 11:22:00 Nawaf Man ma HEPATITIS B SURFACE AB, QUANTITATIVE 2019-05-23 11:22:00 Nawaf Man HEPATITIS C ANTIBODY 2019-05-23 11:22:00 Nawaf Man SYPHILIS TOTAL ANTIBODY 2019-05-23 11:22:00 Nawaf [facility] HC COMPLETE BLD COUNT W/AUTO DIFF 2019-05-23 11:22:00 Arianna Man ed PROTHROMBIN TIME WITH INR 2019-05-23 11:22:00 Nawaf Man PARTIAL THROMBOPLASTIN TIME (PTT) 2019-05-23 11:22:00 Arianna Man ed ABORH - TRANSPLANT 2019-05-23 11:22:00 Nawaf Man n [facility] DRUG RIBERA 9, SER/WILLIAM, SCRN W/RFLX TO CONF 2019-05-23 11:22:00 Nawaf Arvizu NICOTINE AND COTININE, SERUM 2019-05-23 11:22:00 Nawaf Man ama Cirilo Washburn TB T-SPOT 2019-05-23 11:22:00 [facility] C-PEPTIDE 2019-05-23 11:22:00 Nawaf Man [facility]ist SERUM ELECTROPHORESIS 2019-05-23 11:22:00 Nawaf Man PROSTATE SPECIFIC ANTIGEN 2019-05-23 11:22:00 Nawaf Man ESTIMATED GFR 2019-05-23 11:22:00 Nawaf Man [facility] HCV QUALITATIVE BY PCR 2019-05-23 11:22:00 Nawaf Man Plan of Care Planned Activity Planned Date Details Comments Source Future Scheduled Test 2020-04-19 00:00:00 INFLUENZA VACCINE [code = INFLUENZA VACCINE] [facility] Future Scheduled Test 2009 00:00:00 COLONOSCOPY SCREEN ING [code = COLONOSCOPY SCREENING] [facility] Future Scheduled Test 2009 00:00:00 SHINGLES VACCINES (#1) [code = SHINGLES VACCINES (#1)] [facility] Future Scheduled Test 1969 00:00:00 DIABETIC FOOT EXAM [code = DIABETIC FOOT EXAM] [facility] Future Scheduled Test 1969 00:00:00 URINE MICROALBUMIN [code = URINE MICROALBUMIN] [facility] Future Scheduled Test 1959 00:00:00 DIABETIC RETINAL E YE EXAM [code = DIABETIC RETINAL EYE EXAM] [facility] Encounters Start Date/Time End Date/Time [facility] ID Source 2019-12-11 00:00:00 2019-12-11 00:00:00 Outpatient ISIS RAMACHANDRAN [facility] [id number] Cirilo Washburn 2019-11-28 00:00:00 2019-11-28 00:00:00 Outpatient ISIS RAMACHANDRAN [facility] [id number] [facility] 2019-07-30 00:00:00 2019-07-30 00:00:00 Outpatient DELLA STEVENSON [facility] [id number] [place] [facility] 2019-06-26 00:00:00 2019-06-26 00:00:00 Outpatient ISIS RAMACHANDRAN [facility] [id number] [facility] 2019-06-26 00:00:00 2019-06-26 00:00:00 Outpatient ISIS RAMACHANDRAN [facility] [id number] [facility] 2019-06-20 00:00:00 2019-06-20 00:00:00 Outpatient NAWAF MAN [facility] [id number] [facility] 2019-06-20 00:00:00 2019-06-20 00:00:00 Outpatient NAWAF MAN [facility] [id number] [facility] 2019-06-20 00:00:00 2019-06-20 00:00:00 Outpatient NAWAF MAN [facility] [id number] [place] [facility] 2019-06-06 00:00:00 2019-06-06 00:00:00 Outpatient HU APONTE [facility] [id number] [facility] 2019-06-01 00:00:00 2019-06-01 00:00:00 Outpatient HU APONTE [facility] [id number] [facility] Results Test Description Test Time Test Comments Results Result Comments Source C1Q class 1 & 2 antibody 2019-08-09 16:36:00 Test Item Interpretation (test code = [id number]) ADDITIONAL ANTIBO DY INFORMATION:DP4 = DPB1*04:01 Case number (test code = [id number]) [id number] C1Q class 1 & 2 antibody (test code = 3057364) See corwin tillman below for PDF Lab Report Cirilo Breauxscellaneous referral [id number] 12:58:32* Test Item Value Reference Range Interpretation Comments Misc test name (test code = 2566) Oxalate, Plasma Misc test result (test code = 1730) see note Oxalate, Plasma FLUP test code 2829967 Oxalate, Plasma 14.0 umol/L high (Ref Interval: <=1.9) 999INTERPRETIVE INFORMATION: Oxalate, PlasmaTest developed and characteristics determined by [employer]. See Compliance Statement B: [employer]CS Test performed by:[employer] [place] [id number] [place] [facility]- RMVL CV MARILY WO PORT/[id number] 15:45:00 Patient Name: CHRISTOPHER ARMENTA Unit No: [id number] EXAMS: CPT CODE: [id number] RMVL CV MARILY WO PORT/PUMP 96021 TUNNELLED CATHETER REMOVAL Dated:08/06/2019 Indication: LOCATION: T18 TECHNIQUE: The risks, benefits, and alternatives were discussed and informed consent was obtained. Prior to beginning the procedure, [place] Protocol was used to confirm the patient's identity and planned procedure. Maximum sterile barriers including cap, mask, hand hygiene, sterile gloves, sterile gown, large sterile drape and cu taneous antisepsis were used. PROCEDURE: The tunneled catheter and s urrounding skin was prepped and draped in normal sterile fashion. The ski n was anesthetized using 1% lidocaine. The subcutaneous cuff of the marbin ter was freed using blunt dissection. The catheter was removed and pressu re held over the puncture site until hemostasis was achieved. A bandage w as applied. Complications: None. IMPRESSION: Right internal jugular tunnelled catheter removal. at 1545 Reported and signed by: Tiffany Horner M.D. CC: Cuate Tavares; Tiffany Horner MD Dictated Date/Time: 08/08/2019 (1545) Techn ologist: Car Naranjo Fluoro Time: DAP (Gy m2): Air Kerma (mGy): Trnscrpt: 08/08/2019 (1545) [email or web address] [facility] Ede IR NAME : CHRISTOPHER ARMENTA Interventional Lab PHYS: Tiffany Mcmahon MD [address] [place] [address] [address]vd : 0 AGE: 58 SEX: Warren Mera, Latha [phone] LOC: AlexeiEuniceVICKY PHONE #: EXAM DATE: 08/06/2019 ST ATUS: DEP [facility] FAX #: RAD #: D/C DT PAGE 1 Signed Report Low resolution full typing by [id number] 17:34:57* Test Item Value Reference Range Interpretation Comments Interpretation (test code = [id number]) Note: HLA typing was performed by PCR-SSO DNA based procedures.Note: The serological phenotype is an interpretation based on molecular typing data. Case number (test code = [id number]) [id number] Low resolution full typing by SSO (test code = 1359) S ee link below for PDF Lab Report Ciirlo WashburnBLOOD UREA [id number] 12:37:00* Test Item Value Reference Range Interpretation Comments BLOOD UREA NITROGEN (test code = BUN) 48 MG/DL 7-18 H [id number] 12:33:00* Test Item Value Reference Range Interpretation Comments CREATININE (test code = CREAT) 9.68 MG/DL 0.55-1.30 HH Critical values are excluded from call documentation due tothe patient diagnosis or therapy protocols.Results may be depressed if patient is takingN-Acetylcysteine (NAC) and Metamizole (Dipyrone). PT AND [id number] 12:32:00* Test Item Value Reference Range Interpretation Comments PT PATIENT (test code = PTP) 11.1 SECONDS 9.4-12.5 N INTERNATIONAL NORMAL RATIO (test code = INR) 0.96 INR Unit 0.88-1.1 3 N Therapeutic range for INR is dependent upon the situation.2.0-3.0 Prophylaxis / venous thromboembolism, Treatment of DVT, Acute myocardial infarction stroke prevention, Systemic embolism prevention in fibrillation3.0-4.5 AMI recurrence prevention, Systemic embolism prevention in prosthetic heart 3.0-5.4 AMI mortality reduction THROMBOPLASTIN TIME PARTIAL (test code = PTT) 35.4 SECONDS 24-37.7 N THERAPEUTIC RANGE FOR UNFRACTIONATED HEPARIN = 50.5-83.6 SEC This test is not recommended to monitor low molecularweight heparin or danaparoid. Order LMWH test COLLECTION THROUGH LINES THAT HAVE BEEN PREVIOUSLY FLUSHEDWITH HEPARIN SHOULD BE AVOIDED DUE TO POSSIBLE HEPARINCONTAMINATION Specimen comments: PRE OP FOR IRComments to Billet Bed Operator: PT IN DSUIs this a CORWIN E draw? NANTICOAGULANT THERAPY [Y,N]: [facility] W/AUTO [id number] 12:22:00* Test Item Value Reference Range Interpretation Comments WHITE BLOOD CELL (test code = WBC) 5.9 K/mm3 4.1-12.1 N RED BLOOD CELL (test code = RBC) 3.16 M/mm3 3.8-5.5 L HEMOGLOBIN (test code = HGB) 9.4 G/DL 10.6-15.8 L HEMATOCRIT (test code = HCT) 28.2 % 31.8-47.4 L MEAN CELL VOLUME (test code = MCV) 89.2 fL 80.1-101.1 N MEAN CELL HGB (test code = MCH) 29.7 pg 25.3-35.3 N MEAN CELL HGB CONCETRATION (test code = MCHC) 33.3 G/DL 32.7-35. 1 N RED CELL DISTRIBUTION WIDTH (test code = RDW) 13.6 % 12.2-16. 4 N RED CELL DISTRIBUTION WIDTH (test code = RDW-SD) 44.1 fL 35.1- 43.9 H PLATELET COUNT (test code = PLT) 213 K/mm3 155-337 N MEAN PLATELET VOLUME (test code = MPV) 8.6 fL 7.6-10.4 N GRANULOCYTE % (test code = GR%) 54.8 % 37.8-82.6 N IMMATURE GRANULOCYTE % (test code = IG%) 0.7 % 0.0-2.0 N LYMPHOCYTE % (test code = LY%) 33.2 % 14.1-45.4 N MONOCYTE % (test code = MO%) 7.9 % 2.5-11.7 N EOSINOPHIL % (test code = EO%) 2.4 % 0.0-6.2 N BASOPHIL % (test code = BA%) 1.0 % 0.0-2.6 N NUCLEATED RBC % (test code = NRBC%) 0.0 /100WBC% 0.0-1.0 N GRANULOCYTE # (test code = GR#) 3.25 k/mm3 2.0-13.7 N IMMATURE GRANULOCYTE # (test code = IG#) 0.04 K/mm3 0.00-0.03 H LYMPHOCYTE # (test code = LY#) 1.97 K/mm3 0.6-3.8 N MONOCYTE # (test code = MO#) 0.47 K/mm3 0.11-0.59 N EOSINOPHIL # (test code = EO#) 0.14 K/mm3 0.0-0.4 N BASOPHIL # (test code = BA#) 0.06 K/mm3 0.0-0.1 N NUCLEATED RBC # (test code = NRBC#) 0.00 K/mm3 0.00-0.05 N Single antigen [id number] 09:21:27* Test Item Value Reference Range Interpretation Comments [facility] serum ID (test code = 5866) [id number] [facility] serum collection D&T (test code = 5867) 07/30/2019 07:14 AM SAB class I antibody assignment (test code = 5870) Negative SAB cPRA class I (test code = 5868) 0 SAB class II antibody assignment (test code = 5871) Negative SAB cPRA class II (test code = 5869) 0 Case number (test code = [id number]) [id number] Single antigen beads (test code = 4604) See link below for PDF Lab Report [facility] MethodjozefHerpes simplex virus by [id number] 15:17:59* Test Item Value Reference Range Interpretation Comments Herpes virus, PCR (test code = 36018-2) Not-Detected Not-Detected Herpes virus, PCR (test code = 1523) See link below for PDF Typesetting Supervisor ort Cirilo MethodistHSV type 1/2 combined Ab, [id number] 11:35:05* Test Item Value Reference Range Interpretation Comments HSV 1/2 combined Ab, IgM (test code = 70444-5) 0.33 <=0.89 IV INTERPRETIVE INFORMATION: Herpes Simplex Virus Type 1 [...] occasionally persist for more than 12 months post-infection.Performed by [employer],[address] [place] [id number] gbv.[employer], Max Chung MD, Lab. Director Cirilo LinA autologous [id number] 06:44:58* Test Item Value Reference Range Interpretation Comments AXL source (test code = 5891) Peripheral Blood AXL current serum ID (test code = 5892) [id number] [facility] D&T (test code = 5893) 07/30/2019 07:14 AM AXL flow XM T cell result, current (test code = 5894) Negative AXMHL flow XM B cell result, current (test code = 5895) Negative Case number (test code = 1948190) [id number] HLA autologous crossmatch (test code = 1090) See link below for PDF Lab Report [facility] MethodistCytomegalovirus Ab, [id number] 23:03:36* Test Item Value Reference Range Interpretation Comments Cytomegalovirus Ab, IgM (test code = 5110798) Negative Negative [facility] VenusistHSV 1 & 2 glycoprotein G Ab, [id number] 14:10:22* Test Item Value Reference Range Interpretation Comments HSV 1 glycoprotein G Ab, IgG (test code = 55961-7) Negative Neg ative Negative: No IgG antibodies to HSV1 detected. HSV 2 glycoprotein G Ab, IgG (test code = 34011-5) Negative Neg ative Negative: No IgG antibodies to HSV2 detected. [place] MethodistCytomegalovirus Ab, [id number] 14:09:15* Test Item Value Reference Range Interpretation Comments Cytomegalovirus Ab, IgG (test code = 38489-3) Positive Negative A Positive; IgG antibody to CMV detected which may indicateexposure to CMV infection. Lab Interpretation (test code = 76966-5) Abnormal [place] MethodistEpstein-Mendez virus antibody [id number] 14:08:41* Test Item Value Reference Range Interpretation Comments EBV Ab to viral capsid Ag, IgG (test code = 07506-6) Positive N egative A EBV Ab to viral capsid Ag, IgM (test code = 73512-4) Negative N egative EBV Ab to nuclear Ag, IgG (test code = 7883-2) Positive Negativ e A EBV Ab to early (D) Ag, IgG (test code = 15249-7) Negative Nega tive Tressa-Mendez virus antibody interpretation (test code = 5466) SEE C OMMENT Infection Status: Results may suggest past EBV infection. Lab Interpretation (test code = 73996-1) Abnormal [place] MethodistKappa lambda free light chain with mnswg7520-44-83 13:00:58* Test Item Value Reference Range Interpretation Comments [place] light chain (test code = 78522-0) 187.63 mg/L 3.3-19.4 H Lambda light chain (test code = 67230-2) 98.60 mg/L 5.7-26.3 H [place] lambda ratio (test code = 72289-7) 1.90 0.26-1.65 H Lab Interpretation (test code = 00675-7) Abnormal [place] MethodistCalcium level, urine, [id number] 12:48:45* Test Item Value Reference Range Interpretation Comments Calcium, urine, random (test code = 15047-5) 3 mg/dL [place] MethodistAlpha hxhzcobommp2710-55-04 12:09:39* Test Item Value Reference Range Interpretation Comments Alpha fetoprotein (test code = 60605-9) 2.7 ng/mL 0-8.3 The Nessa 8000 AFP immunoassay was used. Results obtained with different assay methods or kits should not be used interchangeably and may be different. [facility] MethodistCTA Abdomen Pelvis W And Or Wo Trvdptns8103-87-98 12:01:03Hm Interface, Radiology Results 07/30/2019 12:04 PM CSTEXAMINATION: CT ANGIOGRAM ABDOMEN PELVIS W AND OR WO CONTRASTCLINICAL HISTORY: N18.6 End stage renal disease, Renal Transplant EvaluationTECHNIQUE: Multiple CT angiographic images of the abdomen and pelvis were obtained during intravenous administration of contrast. Multiple computerized reformatted images as well as 3-D volume re ndered images were also obtained.CT imaging was performed with iterative reconst ruction techniques and/or automated exposure control to reduce radiation dose.CO MPARISON: None.FINDINGS:The abdominal aorta is of normal course and caliber thr oughout its length, with nonflow-limiting calcified atheromatous plaque predomin ant in the infrarenal segment. No dissection, intramural hematoma or ulcer.Repre sentative aortic diameters: Diaphragmatic hiatus: 2.5 cmLevel of renal arteries: 2.1 cmDistal infrarenal segment: 1.9 cmCeliac: There is a J-shaped proximal seg ment stenosis with poststenotic dilation. Stenosis is greater than 75%. Poststen otic dilation measures up to 1 cm. The gastroduodenal and pancreaticoduodenal pl exus is enlarged.SMA: Patent without stenosis. Replaced right hepatic artery.KAMINI : NormalRenal arteries:Right: Single. Patent without stenosis.Left: Single. Bocanegra nt without stenosis. Mild proximal segment calcification.Iliac arteries:Right co mmon: Mildly tortuous. Mild distal segments calcification along the posterolater al wall. Diameter 1.2 cmLeft common: Trace proximal segment calcification along the medial wall. Diameter 1.2 cmRight external: Mildly tortuous. No calcificatio n or plaque. Diameter 1.2 cmLeft external: Mildly tortuous. Mild medial wall omi cification without stenosis. Diameter 1.2 cmThe common femoral, image portions o f the superficial femoral and profunda femoris are normal. Moderate diffuse tameka riosclerosis of the internal iliac arteries without aneurysm.Soft tissues:Clear lung bases. Cardiomegaly without pericardial effusion.The liver, gallbladder, pa ncreas and spleen are normalAdrenal glands: NormalKidneys: 1.1 cm left inferior pole nonobstructive stone. 1 cm low-attenuation nodule at the anterior aspect of the right mid kidney, statistically likely a cyst. Otherwise, normalUreters and urinary bladder: NormalProstate and seminal vesicles: Seminal vesicles are prom inent. Mild coarse central prostate calcification.Bowel: Normal caliber.Peritone um: NormalLymph nodes: NormalSkeleton: Intact. 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 Specimen InformationSpecimen Source: StoolSpecimen Site: Nonpreserved [place] MethodistHemoglobin [id number] 09:47:02* Test Item Value Reference Range Interpretation Comments Hemoglobin A1C (test code = 17185-1) 6.3 % 4-5.6 H HbA1c cutoffs for diagnosing diabetes:4.0% - 5.6% = normal5.7% - 6.4% = increased risk for diabetes (prediabetes)9>=6.5% = smhnzrls3Vemnx for glycemic control (ADA 2016)< 7.0% Target for non adults with diabetes. More or less stringent targets may be appropriate for individual patients. <7.5% Target for Children and adolescents with type 1 diabetes. Lab Interpretation (test code = 69135-5) Abnormal [place] MethodistABORh - tejtlddrud8649-38-35 09:31:00* Test Item Value Reference Range Interpretation Comments ABO grouping (test code = 883-9) O Rh type (test code = 36103-3) NEG [place] MethodistParathyroid yqjamxe6846-18-59 09:27:25* Test Item Value Reference Range Interpretation Comments PTH (test code = 2731-8) 352 pg/mL 15-65 H Lab Interpretation (test code = 52335-3) Abnormal [place] MethodistCreatinine level, urine, iwardg4566-21-27 09:24:43* Test Item Value Reference Range Interpretation Comments Creatinine, urine, random (test code = 63304-3) 70 mg/dL [place] MethodistFasting glucose fndqc9389-14-24 09:20:55* Test Item Value Reference Range Interpretation Comments Glucose, fasting (test code = 2345-7) 91 mg/dL 65-99 [place] MethodistLipid [id number] 09:20:00* Test Item Value Reference Range Interpretation Comments Cholesterol (test code = 2093-3) 121 mg/dL <200 Triglycerides (test code = 2571-8) 58 mg/dL <150 HDL cholesterol (test code = 2085-9) 48 mg/dL >40 LDL cholesterol (test code = 2089-1) 63 mg/dL <100 Result obtained by direct LDL measurement Lipid panel interpretation (test code = 84983-7) SeeBelow Total Cholesterol (mg/dL) <200 Desirable 200-239 Borderline-high >=240 High Triglycerides (mg/dL) <150 Normal 150-199 Borderline-high 200-499 High >=500 Very high HDL Cholesterol (mg/dL) <40 Low (male) <40 Low (female) LDL Cholesterol (mg/dL) <100 Optimal 100-129 Near or above optimal 130-159 Borderline-high 160-189 High >=190 Very high Risk Catergories that modify LDL goals.Risk Catergories LDL goal (mg/dL)CHD and CHD risk equivalent <100 (10-year risk >20%)Multiple (2+) risk factors <130 (10-year risk =<20%)0-1 risk factors <160 (<10-year risk) Defining levels of lipids in metabolic syndromeTriglycerides >=150 mg/dLHDL Cholesterol Men <40 mg/dL Women <40 mg/dL Non-HDL cholesterol is a second target for therapy in personswith high triglycerides (>=200 mg/dL) [place] MethodistUric acid [id number] 09:20:00* Test Item Value Reference Range Interpretation Comments Uric acid (test code = 3084-1) 5.1 mg/dL 3.4-7 [place] MethodistCreatinine [id number] 09:19:59* Test Item Value Reference Range Interpretation Comments Creatinine (test code = 2160-0) 9.19 mg/dL 0.7-1.2 H Lab Interpretation (test code = 06766-1) Abnormal Cirilo WashburnCqrsujzdjISA7645-27-76 09:19:59* Test Item Value Reference Range Interpretation Comments LDH (test code = 21810-2) 209 U/L 87-225 Cirilo WashburnPhosphorus [id number] 09:19:59* Test Item Value Reference Range Interpretation Comments Phosphorus (test code = 2777-1) 5.9 mg/dL 2.4-4.5 H Lab Interpretation (test code = 64203-3) Abnormal Cirilo Potts Abdominal [id number] 11:45:02Hm Interface, Radiology Results Incoming 06/26/2019 11:48 AM CDTEXAMINATION: US ABDOMINAL DOPPLERCLINICAL HISTORY: B18.2 Chronic viral hepatitis C, N18.6 End stage renal disease, Hepatitis CCOMPARISON: None availableTECHNIQUE: Zapien scale, color Doppler and spectral waveform analysis of the hepatic vasculature.IMPRESSION:1. PORTAL VEINS: *Main portal vein: The main portal vein is patent with normal directionality of flow. Portal vein velocity is 24.4 cm/sec. *Left Portal Vein: The left portal vein is patent.*Right Portal Vein:The right portal vein is patent.2. HEPATIC VEINS: *Right Hepatic Vein: The right hepatic vein is paten t.*Middle Hepatic Vein: The middle hepatic vein is patent.*Left Hepatic Vein: Th e left hepatic vein is patent.3. HEPATIC ARTERIES: *Right Hepatic Artery: The ri ght hepatic artery is patent.*Left Hepatic Artery: The left hepatic artery is pa tent.4. IVC: The inferior vena cava is patent.5. SMV: The superior mesenteric ve in is patent.6. SPLENIC ARTERY/VEINS: *Splenic Artery/Vein at Spleen: The splen ic artery/vein at the spleen are patent.*Splenic Artery/Vein at Midline: The sp lenic artery/vein at the midline are patent.Cirilo WashburnUS Abdominal with Liver [id number] 11:44:04Hm Interface, Radiology Results Incoming - 06/26/2019 11:47 AM CDTEXAM: US ABDOMINAL WITH LIVER ELASTOGRAPHYCLINICAL DATA: B18.2 Chronic viral hepatitis C, N18.6 End stage renal disease, Hepatitis CCOMPARISON: NONE.IMPRESSION:LIVER: The liver demonstrates normal echogenicity without focal mass or intrahepatic biliary ductal dilatation.MPV: Doppler evaluation of the portal vein demonstrates normal hepatopedal flow.GALLBLADDER: Stones and sludge are present in the gallbladder. No evidence of acute cholecystitis.PANCREAS: Visualized pancreas is grossly unremarkable.CBD: The common bile duct measures 5 mm , within normal limits.ASCITES: No abnormal abdominal fluid collections are visualized. There is no evidence of ascites.KIDNEYS: The right kidney measures up to 14 cm in the left kidney m easures up to 13.6 cm. The kidneys demonstrate increased echogenicity consistent with underlying medical renal disease. There are bilateral renal cysts noted, w ith the largest in the right kidney measuring up to 11 mm.SPLEEN: Spleen is monique ogeneous and slightly enlarged measuring up to 14 cm.AORTA: The abdominal aorta is normal in caliber where visualized.IVC: Visualized portions of the IVC are pa tent.2D-Shear wave elastography was performed; 10 measurements were obtained fro m the right hepatic lobe per protocol. The median shear wave velocity was 1.68 m /s, most compatible with F2 fibrosis (see reference ranges for GE Logiq E9 with C1-6 Mhz probe below)Cognea E9 reference ranges:MetavirSW velocity stiffness(k Pa_F0 Normal<1.35 m/s<5.48F1 Mild1.35-1.66 m/s5.48-8.29F2 Mild-Mod1.66-1.77 m/s8.29-9.4 F3 Mod-Severe1.77-1.99 m/s9.40-11.9 F4 Cirhosis>1.99 m/s> 11.9Reliability:The IQR was 0.11, resulting in an IQR/median ratio of 0.07. (A v alue of < 0.3 indicates a reliable dataset).SUMMARY:1.F2 fibrosis. No focal liver mass is identified.2.Cholelithiasis without evidence of cholecystitis.3.Findings consistent with chronic kidney disease.[facility]-[id number] Cirilo Potts [id number] 13:03:49Hm Interface, Radiology Results - 06/20/2019 1:06 PM CDTEXAMINATION: US RENALCLINICAL HISTORY: N18.6 End stage renal disease, Renal Transplant EvaluationCOMPARISON: None.IMPRESSION:1.There is no hydronephrosis.2.Renal cortical echogenicity is increased consistent with medical renal disease.3.Right kidney measures 12 x 6.1 x 4.6 cm . There is a 1 cm cyst in the lower pole of the right kidney.4.Left kidney measures 12.4 x 5 x 6.1 cm . There is a 1.6 cm calyceal stone in lower pole of the left kidney.5.Bladder is unremarkable.[facility]-[id number] MethodistEchocardiogram complete w contrast and 3D if pvorky3467-07-95 11:37:00 Interface, Radiology Results In - 06/20/2019 11:38 AM CDT Echocardiography Report [id number] [place] [address] Pat.Tomy e: CHRISTOPHER ARMENTA Pat.ID: [id number] .Date: 019 Refer.MD: NAWAF MAN MD Exam Time: 9:17:00 AM Study Type:Routine Echo Height: 69in We ight: 209lb BSA: 2.11 m2 Age: 1 /,58Y Sex: MALE BP: 165/84 HR: 79 bpm Sonogrphr: Eileen Zuniga RDCS Pat. Stat.:Outpatient Study Status:Final Echo Ev ent ID:[id number] Order ID: [id number] Reason for Study: Renal Transplant EvalHistory / Clinical:Diabetes, Hyperlipidemia, Hypertension, ESRDProcedures: 2D Echo, Colorflow Doppler, Strain ------SUMMARY: LV size is normal. There is mo derate concentric LV hypertrophy.LV EF is normal. Estimated EF is 65-69% LV GLS is lower limits ofnormal at -16.5%.RV size is normal. RV systolic function is no rmal.Diastolic dysfunction Grade I (Mild): Impaired relaxation with normalLV barbie ling pressures. FINDINGS: LV: LV size is normal. There is moderate concentric LV hypertrophy. LV EF is normal. Overall wall motion is normal. Es timated EF is 65-69% LV GLS is lower limits of normal at -16.5%.RV: RV size is normal. RV systolic function is normal.LA: LA volume is mod erately enlarged.RA: RA size is normal.AO: Aortic root diameter is m ildly enlarged.JAMIA: No pericardial effusion.AV: No structural AV abno rmalities noted.MV: No structural MV abnormalities noted.PV: No stru ctural PV abnormalities noted. A trace of pulmonic regurgitation. TV: No structural TV abnormalities noted.Gonzales: LV relaxation is impaired. L V filling pressure is normal. Hepatic vein pressure is normal, RA pres sure < 5mmHg. Diastolic dysfunction Grade I (Mild): Impaired relaxation with normal LV filling pressures.Other: Insufficient TR jet to estimate PA systolic pressure. MEASUREMENTS:--------- 2DParasternal Long [place] Ao An 2.2 cm LVPWd 1.3 cm Ao Rtd 4.2 cm Index 2 cm/m2 LA Ds 3.7 cm IVSd 1.3 cm RWT 0.5 LVIDd 5.4 cm Index 2.5 cm/m2 LV Mass 295.6 g ( 122-174) LVIDs 3.3 cm LVM Index 140.1 g/m2 LV%fs 38.9 % LVOT 2.2 cm LA Sng Plane LA Area 2 5.1 cm2 (8.8-23.4) LA Vol 90.3 ml Index 42.8 ml/m2 LA LngAx 5.7 cm RA Sng Plane RA Vol 58.3 ml Index 27.6 ml/m2 RA LngAx 5 cm RA Area 18.8 cm2 ( 8.3-19.5)LVOT Stroke Vol LVOT 2.3 cm LVOT LVOT Area 3.9 cm2 DOPPLERLVOT Stroke Vol LVO T TVI 24.8 cm HR 87 bpm LVOT LVOT SV 98 ml LVOT CO 8.5 l/min SVi 46.5 ml/m2 LVOT CI 4 l/m/m2 Signed 06/20/2019 11:37 AMSherif Casey Pettit MethodistXR Chest 2 [id number] 10:45:23Hm Interface, Radiology Results Incoming - 06/20/2019 10:48 AM CDTEXAMINATION: XR CHEST 2 VWCLINICAL HISTORY: N18.6 End stage renal disease, Renal Transplant EvaluationIMPRESSION:There is a double-lumen central venous catheter in good position. Heart and mediastinum are normal. Lungs are clear. There is hardware in cervical spine. No change from 06/01/2019.[facility]-[id number] MethodistPO [id number] 09:37:40* Test Item Value Reference Range Interpretation Comments POC glucose (test code = 13577-7) 88 mg/dL 65-99 Meter ID: [id number]: Brenda [place] MethodistPeripheral [id number] 07:34:35Michael Wetzel MD 06/06/2019 7:41 AMPeripheral BlockPerformed by: Michael Wetzel MDAuthorized by: Michael Wetzel MD Patient Location: Pre-opStart Time: 06/06/2019 7:09 AMEnd Time: 06/06/2019 7:16 AMReason for Block: at surgeon's request, post-op pain management, procedure for pain Staff: Anesthesiologist: Michael Wetzel MD Performed by: AnesthesiologistPreprocedure: patient identified, IV checked, site and side verified, risks and benefits discussed, procedure verified, surgical consent complete, patient position confirmed, monitors and equipment checked, pre-op evaluation complete and site marked Time Out Performed: 06/06/2019 7:09 AMPeripheral Nerve Block: Patient Position: Supine Prep: ChloraPrep Monitoring: Blood pressure monitoring, continuous pulse oximetry and heart rateBlock Type: SupraclavicularLaterality: LeftIn jection Technique: Single injectionProcedures: ultrasound guided Ultrasound do cumentation: Still images obtainedLocal Infiltration (See MAR for details): Ro pivacaineNeedle: Needle Type: Short-bevel Needle Gauge: 21 G Needle Length : 10 cmAssessment: Injection Assessment: Visualized needle/local anesthetic surrounding nerve, visualized pertinent vascular structures and nerves, needle t ip visualized at all times during injection of medication, intermittent aspirati on during local anesthetic administration and no symptoms of intraneural/intrave nous injection Paresthesia Pain: None Heart Rate Change: No Slow Fractiona memo Injection: Yes Block outcome: No apparent complications, patient comfort able and patient tolerated procedure wellNotes: Sterile technique used with h at, gloves and maskCirilo WashburnPotassium [id number] 06:11:17* Test Item Value Reference Range Interpretation Comments Potassium (test code = 2823-3) 4.8 3.5- 5.0 mEq/L Cirilo WashburnECKeyanna Pre/Post [id number] 20:10:29* Test Item Value Reference Range Interpretation Comments Ventricular rate (test code = 253) 79 Atrial rate (test code = 255) 79 TX interval (test code = 266) 162 QRSD interval (test code = 260) 92 QT interval (test code = 264) 364 QTC interval (test code = 265) 417 P axis 1 (test code = 267) 21 QRS axis 1 (test code = 268) -7 T wave axis (test code = 270) 46 EKG impression (test code = 273) Normal sinus rhythm-N ormal ECG-No previous ECGs available- Cirilo Washburn
--- NOTE | 2020-02-07 20:14 | Operative Report ---
DATE OF PROCEDURE: 02/07/2020 SURGEON: Osvaldo Betancourt MD PREOPERATIVE DIAGNOSIS: Right carpal tunnel syndrome, G56.01. POSTOPERATIVE DIAGNOSIS: Right carpal tunnel syndrome, G56.01. PROCEDURE: Right carpal tunnel release, 18205. ANESTHESIA: General. INDICATIONS: The patient is a man, who presented with bilateral carpal tunnel syndrome and has previously undergone left carpal tunnel release and is now taken to surgery for right carpal tunnel release. DESCRIPTION OF PROCEDURE: After induction of general anesthesia, the patient was placed on the operative table in supine position with the right arm abducted over a hand table. The right hand, wrist, and forearm were prepped and draped circumferentially in sterile fashion. The tourniquet was inflated over the upper arm to 250 mmHg. A small midline incision was created over the median palmar crease of the hand just distal to the distal flexor crease of the wrist. The subcutaneous fat was divided and the transverse carpal ligament was identified and incised with a #15 C blade until the underlying median nerve came into view. As the pet care assistant retracted the skin edges, the transverse carpal ligament was divided proximally and distally with tenotomy scissors to fully exposed and decompressed the median nerve within the carpal tunnel. The wound was irrigated with bacitracin solution and closed with 3-0 Vicryl suture in a single 3-0 nylon suture in a horizontal mattress fashion. The dressing was applied. The hand was wrapped and the patient was awakened, extubated, and taken to Postanesthesia Care Unit in stable condition. No intraoperative complications were encountered. Estimated blood loss was minimal. Osvaldo Betancourt MD PP/RAJWINDERL /[id number]
== END | disposition home or self-care (01) ==
LOC: OR 05:59
PROVIDERS: ATTEND Neurological Surgery
DX: G56.01 Carpal tunnel syndrome, right upper limb (principal); B19.20 Unspecified viral hepatitis C without hepatic coma; E11.22 Type 2 diabetes mellitus with diabetic chronic kidney disease; I12.0 Hypertensive chronic kidney disease with stage 5 chronic kidney disease or end stage renal disease; N18.6 End stage renal disease; Z01.810 Encounter for preprocedural cardiovascular examination; Z01.812 Encounter for preprocedural laboratory examination; Z11.59 Encounter for screening for other viral diseases; Z99.2 Dependence on renal dialysis; Z79.84 Long term (current) use of oral hypoglycemic drugs
CPT/HCPCS: 36415; 64721; 80048; 82948; 85610; 85730; 87635; 93005; J0690; J1100; J2001; J2250; J2405; J2704; J3010; J7040